=== PATIENT | female | born 1955 | race Caucasian/White ===

== ENCOUNTER 2017-09-18 16:49 | Inpatient (IN) | payer MEDICARE, MEDICAID ==
--- NOTE | 2017-09-18 17:42 | ED Physician Chart ---
ED Chief Complaint/HPI - Patient Information Date Seen:: 09/18/17 Time Seen:: 17:40 Chief Complaint:: Weakness History of Present Illness:: onset x one day of weakness, dizziness and left knee pain; no report of LOC, trauma, H/As, neck pain, C/P, SOB, Abd. Pain, A/N/V/D/C, fever, chills, or urinary s/s; Historian:: Patient, EMS Review:: Nurse's Note Reviewed, Old Chart Reviewed, EMS run form Reviewed ED Review of Systems - Review of Systems General/Constitutional: No fever, No chills, No weight loss, No weakness, No diaphoresis, No edema, No loss of appetite Skin: No skin lesions, No rash, No bruising Head: No headache, No light-headedness Eyes: No loss of vision, No pain, No diplopia ENT: No earache, No nasal drainage, No sore throat, No tinnitus Neck: No neck pain, No swelling, No thyromegaly, No stiffness, No mass noted Cardio Vascular: No chest pain, No palpitations, No PND, No orthopnea, No edema Pulmonary: No SOB, No cough, No sputum, No wheezing GI: No nausea, No vomiting, No diarrhea, No pain, No melena, No hematochezia, No constipation, No hematemesis G/U: No dysuria, No frequency, No hematuria, No nacturia [employer]: No vaginal discharge, No abnormal vaginal bleed, No contraction Musculoskeletal: Bone or joint pain, No back pain, Muscle pain Endocrine: No polyuria, No polydipsia Psychiatric: No prior psych history, No depression, No anxiety, No suicidal ideation, No homicidal ideation, No auditory hallucination, No visual hallucination Hematopoietic: No bruising, No lymphadenopathy Allergic/Immuno: No urticaria, No angioedema Neurological: No syncope, No focal symptoms, No weakness, No paresthesia, No headache, No seizure, No dizziness, No confusion, No vertigo ED Past Medical History - Past Medical History Obtainable: Yes Past Medical History: HTN, Dyslipidemia Family History: HTN Social History: Non Smoker, No Alcohol, No Drug Use, , Care Facility Surgical History: HIP Psychiatricy History: None Medication: Reviewed ED Physical Exam - Physical Examination General/Constitutional: Awake, Well-developed, well-nourished, Alert, No distress, GCS 15, Non-toxic appearing, Ambulatory Head: Atraumatic Eyes: Lids, conjuctiva normal, PERRL, EOMI Skin: Nl inspection, No rash, No skin lesions, No ecchymosis, Well hydrated, No lymphadenopathy ENMT: External ears, nose nl, TM canals nl, Nasal exam nl, Lips, teeth, gums nl , Oropharynx nl, Tonsils nl Neck: Nontender, Full ROM w/o pain, No JVD, No nuchal rigidity, No bruit, No mass, No stridor Respiratory: Nl effort/Exclusion, Clear to Auscultation, No Wheeze/Rhonchi/Rales Cardio Vascular: RRR, No murmur, gallop, rubs, NL S1 S2, Carotid/Femoral/Distal pulses equal bilaterally GI: No tenderness/rebounding/guarding, No organomegaly, No hernia, Normal BS's, Nondistended, No mass/bruits, No McBurney tenderness, Rectum exam nl : No CVA tenderness Extremities: No tenderness or effusion, Full ROM, normal strength in all extremities, No edema, Normal digits & nails Neuro/Psych: Alert/oriented, DTR's symmetric, Normal sensory exam, Normal motor strength, Judgement/insight normal, Mood normal, Normal gait, No focal deficits Misc: Normal back, No paraspinal tenderness ED Labs/Radiology/EKG Results - Lab Results Comments:: Na+: 116; + Anemia - Radiology Results Comments:: NAD - EKG Interpretations EKG Time:: 17:36 Rate & Rhythm: 75; NSR Comments:: non-specific st-t changes ED Septic Shock - . Is Septic Shock (SBP<90, OR Lactate>4 mmol\L) present?: No ED Reassessment (Disposition) - Reassessment Reassessment Condition:: Improved - Diagnosis Diagnosis:: Hyponatremia; Anemia; Weakness - Aftercare/Follow up Instructions Aftercare/Follow-Up Instructions:: Counseled pt regarding lab results/diagnosis & need follow up, Counseled pt & family regarding lab results/diagnosis & need follow up - Patient Disposition Discharge/Transfer:: Acute Care w/in this hosp Accepting Physician:: Dr. Miller Time Called:: 1814 Time Responded:: 18:15 Admitted to:: Telemetry Spoke to:: Dr. Miller Admitting Medical Physician:: Dr. Miller Condition at Disposition:: Stable, Improved
[2017-09-18 18:22] LABS: % BASOPHILS 0.9 % (0.0-2.0); % EOSINOPHILS 3.7 % (0.0-5.0); % LYMPHOCYTES 15.8 % (20.0-50.0); % NEUTROPHILS 72.6 % (40.0-80.0); BASOPHILE ABSOLUTE 0.1 Th/cumm (0-0.2); EOSINOPHILE ABSOLUTE 0.3 Th/cmm (0.1-0.4); HEMATOCRIT 35.9 % (41.0-60); HEMOGLOBIN 11.9 gm/dL (12-16); LYMPHOCYTE ABSOLUTE 1.5 Th/cmm (1.5-3.0); MEAN CELL VOLUME 88.3 fl (81-100); MEAN CORPUSCULAR HEMOGLOBIN 29.3 pg (27.0-31.0); MEAN CORPUSCULAR HGB CONC 33.2 pg (28.0-36.0); MEAN PLATELET VOLUME 7.1 fl; MONOCYTE ABSOLUTE 0.7 Th/cmm (0.3-1.0); NEUTROPHILE ABSOLUTE 6.8 Th/cmm (1.8-8.0); PLATELET COUNT 374 Th/cmm (150-400); RED BLOOD COUNT 4.06 Mil/cmm (3.80-5.10); RED CELL DISTRIBUTION WIDTH 13.3 % (11.5-20.0); WHITE BLOOD COUNT 9.4 Th/cmm (4.8-10.8)
[2017-09-18 18:35] LABS: INR 1.01 (0.5-1.4); PROTHROMBIN TIME (TEST) 10.5 SECONDS (9.5-11.5)
[2017-09-18 18:41] LABS: ALBUMIN 3.8 gm/dL (3.7-5.3); ANION GAP 13.7 (7.0-16.0); BILIRUBIN,TOTAL 0.4 mg/dL (0.3-1.0); CALCIUM SERUM 9.4 mg/dL (8.6-10.3); CARBON DIOXIDE 17.4 mEq/L (21.0-31.0); CREATININE - SERUM 1.5 mg/dL (0.6-1.2); GFR AFRICAN-AMERICAN 45.4 ml/min (>90); GFR NON AFRICAN-AMERICAN 37.5 ml/min; POTASSIUM SERUM 4.1 mEq/L (3.5-5.1); TOTAL PROTEIN,SERUM 7.7 gm/dL (6.0-8.3)
[2017-09-18] MEDS ORDERED: Sodium Chloride 0.9% 1,000 ML IV ONE (19:10)
[2017-09-18 19:30] LABS: AMYLASE SERUM 60 U/L (29-103); LIPASE 50 U/L (11-82)
[2017-09-18] MEDS ORDERED: Morphine Sulfate 2 mg/mL 1mL Syr IVP PRN (22:13)
[2017-09-18 22:24] VITALS: BP 159/90
[2017-09-18] MEDS: cefTRIAXone 1 GM in Sodium Chloride 0.9% 50 ML IV SCH (23:42)
[2017-09-19] MEDS ORDERED: D5-0.45NS 1,000 ML IV SCH
[2017-09-19] MEDS ORDERED: NAPROXEN SODIUM 220 MG PO SCH (05:00)
[2017-09-19 06:49] LABS: % BASOPHILS 1.1 % (0.0-2.0); % EOSINOPHILS 5.7 % (0.0-5.0); % LYMPHOCYTES 16.5 % (20.0-50.0); % MONOCYTES 8.4 % (2.0-10.0); % NEUTROPHILS 68.3 % (40.0-80.0); BASOPHILE ABSOLUTE 0.1 Th/cumm (0-0.2); EOSINOPHILE ABSOLUTE 0.5 Th/cmm (0.1-0.4); HEMATOCRIT 33.7 % (41.0-60); HEMOGLOBIN 11.4 gm/dL (12-16); LYMPHOCYTE ABSOLUTE 1.4 Th/cmm (1.5-3.0); MEAN CORPUSCULAR HGB CONC 33.8 pg (28.0-36.0); MEAN PLATELET VOLUME 7.4 fl; MONOCYTE ABSOLUTE 0.7 Th/cmm (0.3-1.0); NEUTROPHILE ABSOLUTE 5.6 Th/cmm (1.8-8.0); PLATELET COUNT 384 Th/cmm (150-400); RED BLOOD COUNT 3.79 Mil/cmm (3.80-5.10); RED CELL DISTRIBUTION WIDTH 13.2 % (11.5-20.0); WHITE BLOOD COUNT 8.3 Th/cmm (4.8-10.8)
[2017-09-19 06:51] LABS: INR 0.97 (0.5-1.4); PROTHROMBIN TIME (TEST) 10.1 SECONDS (9.5-11.5)
[2017-09-19 07:01] LABS: ANION GAP 10.8 (7.0-16.0); CALCIUM SERUM 9.1 mg/dL (8.6-10.3); CREATININE - SERUM 1.6 mg/dL (0.6-1.2); GFR AFRICAN-AMERICAN 42.1 ml/min (>90); GFR NON AFRICAN-AMERICAN 34.8 ml/min; POTASSIUM SERUM 3.8 mEq/L (3.5-5.1)
[2017-09-19] MEDS: Sodium Chloride 0.9% 1,000 ML IV SCH ×2 (07:34→21:20)
--- NOTE | 2017-09-19 09:49 | Diagnostic Imaging Report ---
Exam: Left knee joint. HISTORY: Pain. Findings: Multiple views of left knee joint reviewed. The study demonstrates displaced oblique overriding fracture of distal left femur. There is evidence for abnormal appearance texture of distal left femur suggestive of a pathological fracture, neoplastic component cannot be excluded Extensive degenerative osteopenia and osteoporosis noted. The joint spaces narrowed. Flattening of the tibial plateau appreciated. The visualized patella is intact. IMPRESSION: Most likely pathological fracture of the left distal femur. Degenerative osteoarthritis and osteoporosis changes of the left knee joint.
--- NOTE | 2017-09-19 09:51 | Diagnostic Imaging Report ---
Exam: Left hip joint. HISTORY: Pain. Findings: Portable examination of the left hip joint at 1926 hours reviewed. The study she is comminuted displaced fracture of the proximal shaft of the left femur extending into the intertrochanteric area with avulsion of lesser trochanter. This might represent an pathological fracture activity is unknown. The head of left femur is well within the acetabular fossa. The visualized the left hemipelvis is intact. Diffuse vascular calcifications are noted. IMPRESSION: Comminuted displaced fracture of the left femoral neck extending of the proximal left femur avulsion of the greater trochanter. This represent subacute or chronic trauma. Neoplastic component cannot be excluded.
--- NOTE | 2017-09-19 09:52 | Diagnostic Imaging Report ---
Exam: Pelvis. HISTORY: Pain. Findings: Portable examination of the pelvis at 1921 hours reviewed. The study demonstrates comminuted displaced fracture of the left femoral neck extending approximately left femur with avulsion of the greater trochanter. This might represent a pathological fracture, acuity is unknown. The visualized pelvis and right hip joints are intact. IMPRESSION Question of a subacute pathological fracture of the left upper proximal femur. Clinical correlation is recommended.
--- NOTE | 2017-09-19 09:57 | Diagnostic Imaging Report ---
Portable chest x-ray Time: 1811 History: Pain Allowing for portable technique the heart size is normal. No focal pulmonary parenchymal processes. No hilar or mediastinal abnormalities. Impression: No acute abnormalities.
[2017-09-19 15:27] LABS: URINE MICROSCOPIC INDICATED? YES; URINE SOURCE FOLEY PORT
[2017-09-19 15:28] LABS: URINE BILIRUBIN NEGATIVE (NEGATIVE); URINE BLOOD SMALL (NEGATIVE); URINE GLUCOSE (UA) NEGATIVE (NEGATIVE); URINE KETONE NEGATIVE (NEGATIVE); URINE LEUKOCYTE ESTERASE LARGE (NEGATIVE); URINE NITRATE NEGATIVE (NEGATIVE); URINE PH 6.5 (4.6 - 8.0); URINE PROTEIN 30 mg/dL (NEGATIVE); URINE UROBILINOGEN 0.2 E.U./dL (0.2 - 1.0)
[2017-09-19 15:32] LABS: URINE CLARITY CLOUDY (CLEAR); URINE COLOR STRAW
[2017-09-19 15:48] LABS: URINE BACTERIA FEW /hpf (NONE SEEN); URINE EPITHELIAL CELLS FEW /lpf (FEW); URINE WBC 25-50 /hpf (0-5)
--- NOTE | 2017-09-19 16:54 | History & Physical ---
ADMIT DATE: 09/19/2017 HISTORY OF PRESENT ILLNESS: This is a 61-year-old female who was admitted through the Emergency Room from home due to episode of weakness for one day, complaints of left knee pain and dizziness, but denies any episodes of falling or any loss of consciousness. REVIEW OF SYSTEMS: GENERAL: This is a 61-year-old female that appears as stated. Denies fever. Denies chills. HEAD: Denies headache. Positive dizziness. EYES: Denies eye pain. Denies blurring of vision. NECK: Denies neck pain. Denies nuchal rigidity. CHEST: Denies chest pain. Denies palpitation. PULMONARY: Denies coughing. Denies shortness of breath. GASTROINTESTINAL: Denies abdominal pain. Denies diarrhea, denies constipation. MUSCULOSKELETAL: Positive left knee pain. Denies muscle pain. SOCIAL HISTORY: The patient lives in her friend's home prior to hospitalization. PAST SURGICAL HISTORY: Unremarkable. FAMILY HISTORY: Unremarkable. PAST MEDICAL HISTORY: Osteoarthritis. PHYSICAL EXAMINATION: VITAL SIGNS: Temperature 97.7, heart rate 71, blood pressure 158/77, respiration of 18, 100% on room air. HEENT: Head is atraumatic, normocephalic. Eyes: Bilateral conjunctivae are clear. Bilateral pupils are equally round and reactive. NECK: Supple. No JVD. CARDIOVASCULAR: S1 and S2, without murmur. PULMONARY: Clear to auscultation. GASTROINTESTINAL: Soft and nontender without guarding. Positive bowel sounds. MUSCULOSKELETAL: No clubbing. No cyanosis noted. Limited range of motion on left leg. DIAGNOSTIC IMAGING: Pelvic x-ray revealed subacute pathological fracture of left proximal femur. ASSESSMENT: 1. Weakness. 2. Anemia. 3. Femoral fracture. 4. Osteoarthritis. 5. Obesity. PLAN: We will admit the patient to Telemetry Unit. We will consult with the orthopedic doctor. I am also going to do medication reconciliation accordingly and provide pain medication as needed. Treatment plans were discussed with the patient's nurse. Treatment plans were discussed with Dr. Miller. JOB# [id number]
[2017-09-19] MEDS: Morphine Sulfate 2 mg/mL 1mL Syr IVP PRN (21:15)
[2017-09-20] MEDS: cefTRIAXone 1 GM in Sodium Chloride 0.9% 50 ML IV SCH ×2 (00:37→23:21)
[2017-09-20 07:56] LABS: ANION GAP 11.2 (7.0-16.0); CALCIUM SERUM 8.9 mg/dL (8.6-10.3); CREATININE - SERUM 1.6 mg/dL (0.6-1.2); GFR AFRICAN-AMERICAN 42.1 ml/min (>90); GFR NON AFRICAN-AMERICAN 34.8 ml/min; POTASSIUM SERUM 4.2 mEq/L (3.5-5.1)
[2017-09-20] MEDS: Sodium Chloride 0.9% 1,000 ML IV SCH ×2 (10:48→23:26)
--- NOTE | 2017-09-20 11:16 | General Progress Note ---
Subjective - Review of Systems Events since last encounter: patient c/o knee pain c/o dizziness c/o weakness denies cp Objective - Results Result Diagrams: 09/19/17 05:55 09/20/17 07:00 Recent Labs: Laboratory Last Values WBC 8.3 Th/cmm (4.8-10.8) 09/19/17 05:55 RBC 3.79 Mil/cmm (3.80-5.10) L 09/19/17 05:55 Hgb 11.4 gm/dL (12-16) L 09/19/17 05:55 Hct 33.7 % (41.0-60) L 09/19/17 05:55 MCV 89.0 fl (81-100) 09/19/17 05:55 MCH 30.0 pg (27.0-31.0) 09/19/17 05:55 MCHC Differential 33.8 pg (28.0-36.0) 09/19/17 05:55 RDW 13.2 % (11.5-20.0) 09/19/17 05:55 Plt Count 384 Th/cmm (150-400) 09/19/17 05:55 MPV 7.4 fl 09/19/17 05:55 Neutrophils % 68.3 % (40.0-80.0) 09/19/17 05:55 Lymphocytes % 16.5 % (20.0-50.0) L 09/19/17 05:55 Monocytes % 8.4 % (2.0-10.0) 09/19/17 05:55 Eosinophils % 5.7 % (0.0-5.0) H 09/19/17 05:55 Basophils % 1.1 % (0.0-2.0) 09/19/17 05:55 PT 10.1 SECONDS (9.5-11.5) 09/19/17 05:55 INR 0.97 (0.5-1.4) 09/19/17 05:55 PTT (Actin FS) 28.1 SECONDS (26.0-38.0) 09/19/17 05:55 Sodium 123 mEq/L (136-145) L 09/20/17 07:00 Potassium 4.2 mEq/L (3.5-5.1) 09/20/17 07:00 Chloride 97 mEq/L (98-107) L 09/20/17 07:00 Carbon Dioxide 19.0 mEq/L (21.0-31.0) L 09/20/17 07:00 Anion Gap 11.2 (7.0-16.0) 09/20/17 07:00 BUN 27 mg/dL (7-25) H 09/20/17 07:00 Creatinine 1.6 mg/dL (0.6-1.2) H 09/20/17 07:00 Est GFR ( Amer) 42.1 ml/min (>90) 09/20/17 07:00 Est GFR (Non-Af Amer) 34.8 ml/min 09/20/17 07:00 BUN/Creatinine Ratio 16.9 09/20/17 07:00 Glucose 93 mg/dL (70-105) 09/20/17 07:00 Whole Bld Lactic Acid 0.72 mmol/L (0.60-1.99) 09/18/17 18:05 Calcium 8.9 mg/dL (8.6-10.3) 09/20/17 07:00 Total Bilirubin 0.4 mg/dL (0.3-1.0) 09/18/17 18:05 AST 13 U/L (13-39) 09/18/17 18:05 ALT 7 U/L (7-52) 09/18/17 18:05 Alkaline Phosphatase 106 U/L (34-104) H 09/18/17 18:05 Creatine Kinase 55 U/L (30-223) 09/18/17 18:05 Troponin I < 0.01 ng/mL (0.01-0.05) L 09/18/17 18:05 Total Protein 7.7 gm/dL (6.0-8.3) 09/18/17 18:05 Albumin 3.8 gm/dL (3.7-5.3) 09/18/17 18:05 Globulin 3.9 gm/dL 09/18/17 18:05 Albumin/Globulin Ratio 1.0 (1.0-1.8) 09/18/17 18:05 Amylase 60 U/L (29-103) 09/18/17 18:05 Lipase 50 U/L (11-82) 09/18/17 18:05 Urine Source [place] 09/19/17 15:12 Urine Color STRAW 09/19/17 15:12 Urine Clarity CLOUDY (CLEAR) H 09/19/17 15:12 Urine pH 6.5 (4.6 - 8.0) 09/19/17 15:12 Ur Specific Ages [place] <= 1.005 (1.005-1.030) 09/19/17 15:12 Urine Protein 30 mg/dL (NEGATIVE) H 09/19/17 15:12 Urine Glucose (UA) NEGATIVE mg/dL (NEGATIVE) 09/19/17 15:12 Urine Ketones NEGATIVE mg/dL (NEGATIVE) 09/19/17 15:12 Urine Blood SMALL (NEGATIVE) H 09/19/17 15:12 Urine Nitrate NEGATIVE (NEGATIVE) 09/19/17 15:12 Urine Bilirubin NEGATIVE (NEGATIVE) 09/19/17 15:12 Urine Urobilinogen 0.2 E.U./dL (0.2 - 1.0) 09/19/17 15:12 Ur Leukocyte Esterase LARGE (NEGATIVE) H 09/19/17 15:12 Urine RBC 2-5 /hpf (0-5) 09/19/17 15:12 Urine WBC 25-50 /hpf (0-5) H 09/19/17 15:12 Ur Epithelial Cells FEW /lpf (FEW) 09/19/17 15:12 Urine Bacteria FEW /hpf (NONE SEEN) 09/19/17 15:12 - Physical Exam Vitals and I&O: Vital Signs Temp 96.8 F 09/20/17 07:41 Pulse 66 09/20/17 07:41 Resp 18 09/20/17 07:41 BP 161/92 09/20/17 07:41 Pulse Ox 100 09/20/17 07:41 Intake & Output 09/19/17 09/20/17 09/20/17 18:59 06:59 18:59 Intake Total 1000 1150 1050 Output Total 1500 1750 Balance -500 -600 1050 Weight (lbs) 84.822 kg 85.275 kg Intake: Intake, IV Amount 1000 1050 Sodium Chloride 0.9% 1, 1000 1000 000 ml @ 75 mls/hr IV . [id number] [facility] Rx#:[id number] cefTRIAXone 1 gm In 50 Sodium Chloride 0.9% 50 ml @ 100 mls/hr IV Q24HR@ 0000 [facility] Rx#:[id number] Oral 1000 150 Output: Urine 1500 1750 Other: # Bowel Movements 1 1 Stool Characteristics Soft Soft Brown Brown Weight Source Bedscale Bedscale Active Medications: Current Medications Ciprofloxacin (Cipro) 500 mg PO BID [facility] Stop: 11/18/17 08:59 Last Admin: 09/20/17 08:17 Dose: 500 mg Ceftriaxone Sodium 1 gm/ (Sodium Chloride) 50 mls @ 100 mls/hr IV Q24HR@0000 [facility] Stop: 11/18/17 00:00 Last Infusion: 09/20/17 07:30 Dose: Infused Sodium Chloride (Nacl 0.9%) 1,000 mls @ 75 mls/hr IV .[id number] [facility] Stop: 11/18/17 07:14 Last Admin: 09/20/17 10:48 Dose: 75 mls/hr Morphine Sulfate (Morphine) 1 mg IVP Q3H PRN PRN Reason: MODERATE PAIN Stop: 11/17/17 22:10 Last Admin: 09/19/17 21:15 Dose: 1 mg Morphine Sulfate (Morphine) 2 mg IVP Q3H PRN PRN Reason: Severe Pain Stop: 11/17/17 22:12 Naproxen (Naprosyn) 250 mg PO TID [facility] Stop: 11/19/17 08:59 Last Admin: 09/20/17 09:22 Dose: 250 mg Ondansetron HCl (Zofran) 4 mg IV Q4H PRN PRN Reason: Nausea / Vomiting Stop: 11/17/17 22:14 General: No acute distress HEENT: Atraumatic Neck: Supple, no Thyromegaly Cardiovascular: Regular rate, Normal S1, Normal S2 Abdomen: Bowel sounds Assessment/Plan - Problem List Patient Problems: All Active Problems Anemia (Acute) D64.9 Femoral fracture (Acute) S72.90XA Obesity (Acute) E66.9 Osteoarthritis (Acute) M19.90 Weakness (Acute) - Plan Plan: as per order sheet
[2017-09-20] MEDS: Morphine Sulfate 2 mg/mL 1mL Syr IVP PRN (23:49)
[2017-09-21] MEDS: Morphine Sulfate 2 mg/mL 1mL Syr IVP PRN ×2 (11:14→21:56)
[2017-09-21] MEDS: Meropenem 500 MG in Sodium Chloride 0.9% 100 ML IV SCH ×2 (12:52→22:00)
[2017-09-21] MEDS: Sodium Chloride 0.9% 1,000 ML IV SCH (14:31)
--- NOTE | 2017-09-21 16:18 | General Progress Note ---
Subjective - Review of Systems Events since last encounter: patient with knee pain c/o generalized weakness Objective - Results Result Diagrams: 09/19/17 05:55 09/20/17 07:00 Recent Labs: Laboratory Last Values WBC 8.3 Th/cmm (4.8-10.8) 09/19/17 05:55 RBC 3.79 Mil/cmm (3.80-5.10) L 09/19/17 05:55 Hgb 11.4 gm/dL (12-16) L 09/19/17 05:55 Hct 33.7 % (41.0-60) L 09/19/17 05:55 MCV 89.0 fl (81-100) 09/19/17 05:55 MCH 30.0 pg (27.0-31.0) 09/19/17 05:55 MCHC Differential 33.8 pg (28.0-36.0) 09/19/17 05:55 RDW 13.2 % (11.5-20.0) 09/19/17 05:55 Plt Count 384 Th/cmm (150-400) 09/19/17 05:55 MPV 7.4 fl 09/19/17 05:55 Neutrophils % 68.3 % (40.0-80.0) 09/19/17 05:55 Lymphocytes % 16.5 % (20.0-50.0) L 09/19/17 05:55 Monocytes % 8.4 % (2.0-10.0) 09/19/17 05:55 Eosinophils % 5.7 % (0.0-5.0) H 09/19/17 05:55 Basophils % 1.1 % (0.0-2.0) 09/19/17 05:55 PT 10.1 SECONDS (9.5-11.5) 09/19/17 05:55 INR 0.97 (0.5-1.4) 09/19/17 05:55 PTT (Actin FS) 28.1 SECONDS (26.0-38.0) 09/19/17 05:55 Sodium 123 mEq/L (136-145) L 09/20/17 07:00 Potassium 4.2 mEq/L (3.5-5.1) 09/20/17 07:00 Chloride 97 mEq/L (98-107) L 09/20/17 07:00 Carbon Dioxide 19.0 mEq/L (21.0-31.0) L 09/20/17 07:00 Anion Gap 11.2 (7.0-16.0) 09/20/17 07:00 BUN 27 mg/dL (7-25) H 09/20/17 07:00 Creatinine 1.6 mg/dL (0.6-1.2) H 09/20/17 07:00 Est GFR ( Amer) 42.1 ml/min (>90) 09/20/17 07:00 Est GFR (Non-Af Amer) 34.8 ml/min 09/20/17 07:00 BUN/Creatinine Ratio 16.9 09/20/17 07:00 Glucose 93 mg/dL (70-105) 09/20/17 07:00 Whole Bld Lactic Acid 0.72 mmol/L (0.60-1.99) 09/18/17 18:05 Calcium 8.9 mg/dL (8.6-10.3) 09/20/17 07:00 Total Bilirubin 0.4 mg/dL (0.3-1.0) 09/18/17 18:05 AST 13 U/L (13-39) 09/18/17 18:05 ALT 7 U/L (7-52) 09/18/17 18:05 Alkaline Phosphatase 106 U/L (34-104) H 09/18/17 18:05 Creatine Kinase 55 U/L (30-223) 09/18/17 18:05 Troponin I < 0.01 ng/mL (0.01-0.05) L 09/18/17 18:05 Total Protein 7.7 gm/dL (6.0-8.3) 09/18/17 18:05 Albumin 3.8 gm/dL (3.7-5.3) 09/18/17 18:05 Globulin 3.9 gm/dL 09/18/17 18:05 Albumin/Globulin Ratio 1.0 (1.0-1.8) 09/18/17 18:05 Amylase 60 U/L (29-103) 09/18/17 18:05 Lipase 50 U/L (11-82) 09/18/17 18:05 Urine Source [place] 09/19/17 15:12 Urine Color STRAW 09/19/17 15:12 Urine Clarity CLOUDY (CLEAR) H 09/19/17 15:12 Urine pH 6.5 (4.6 - 8.0) 09/19/17 15:12 Ur Specific [place] <= 1.005 (1.005-1.030) 09/19/17 15:12 Urine Protein 30 mg/dL (NEGATIVE) H 09/19/17 15:12 Urine Glucose (UA) NEGATIVE mg/dL (NEGATIVE) 09/19/17 15:12 Urine Ketones NEGATIVE mg/dL (NEGATIVE) 09/19/17 15:12 Urine Blood SMALL (NEGATIVE) H 09/19/17 15:12 Urine Nitrate NEGATIVE (NEGATIVE) 09/19/17 15:12 Urine Bilirubin NEGATIVE (NEGATIVE) 09/19/17 15:12 Urine Urobilinogen 0.2 E.U./dL (0.2 - 1.0) 09/19/17 15:12 Ur Leukocyte Esterase LARGE (NEGATIVE) H 09/19/17 15:12 Urine RBC 2-5 /hpf (0-5) 09/19/17 15:12 Urine WBC 25-50 /hpf (0-5) H 09/19/17 15:12 Ur Epithelial Cells FEW /lpf (FEW) 09/19/17 15:12 Urine Bacteria FEW /hpf (NONE SEEN) 09/19/17 15:12 - Physical Exam Vitals and I&O: Vital Signs Temp 97.7 F 09/21/17 15:24 Pulse 70 09/21/17 15:24 Resp 18 09/21/17 15:24 BP 170/87 09/21/17 15:24 Pulse Ox 98 09/21/17 15:24 Intake & Output 09/20/17 09/21/17 09/21/17 18:59 06:59 18:59 Intake Total 2050 1047.5 1100 Output Total 1700 1700 Balance 350 -652.5 1100 Weight (lbs) 85.275 kg 85.275 kg Intake: Intake, IV Amount 1050 947.5 1100 Meropenem 500 mg In 100 Sodium Chloride 0.9% 100 ml @ 100 mls/hr IV Q8HR [facility] Rx#:[id number] Sodium Chloride 0.9% 1, 1000 947.5 1000 000 ml @ 75 mls/hr IV . [id number] [facility] Rx#:[id number] cefTRIAXone 1 gm In 50 Sodium Chloride 0.9% 50 ml @ 100 mls/hr IV Q24HR@ 0000 [facility] Rx#:[id number] Oral 1000 100 Output: Urine 1700 1700 Stool 0 Other: Stool Characteristics Soft Brown Weight Source Bedscale Bedscale Active Medications: Current Medications Docusate Sodium (Colace) 200 mg PO BID [facility] Stop: 11/19/17 17:59 Last Admin: 09/21/17 08:18 Dose: 200 mg Sodium Chloride (Nacl 0.9%) 1,000 mls @ 75 mls/hr IV .[id number] [facility] Stop: 11/18/17 07:14 Last Admin: 09/21/17 14:31 Dose: 75 mls/hr Meropenem 500 mg/ Sodium (Chloride) 100 mls @ 100 mls/hr IV Q8HR [facility] Stop: 11/20/17 12:59 Last Infusion: 09/21/17 14:39 Dose: Infused Morphine Sulfate (Morphine) 1 mg IVP Q3H PRN PRN Reason: MODERATE PAIN Stop: 11/17/17 22:10 Last Admin: 09/21/17 11:14 Dose: 1 mg Morphine Sulfate (Morphine) 2 mg IVP Q3H PRN PRN Reason: Severe Pain Stop: 11/17/17 22:12 Mupirocin (Bactroban Oint) 1 appl NS BID [facility] Stop: 09/25/17 17:01 Last Admin: 09/21/17 11:14 Dose: 1 appl Naproxen (Naprosyn) 250 mg PO TID [facility] Stop: 11/19/17 08:59 Last Admin: 09/21/17 14:30 Dose: 250 mg Ondansetron HCl (Zofran) 4 mg IV Q4H PRN PRN Reason: Nausea / Vomiting Stop: 11/17/17 22:14 General: No acute distress HEENT: Atraumatic Neck: Supple, no Thyromegaly Cardiovascular: Regular rate, Normal S1, Normal S2 Abdomen: Bowel sounds Assessment/Plan - Problem List Patient Problems: All Active Problems Anemia (Acute) D64.9 Femoral fracture (Acute) S72.90XA Obesity (Acute) E66.9 Osteoarthritis (Acute) M19.90 Weakness (Acute) - Plan Plan: as per order sheet
--- NOTE | 2017-09-21 23:36 | Consultation ---
DATE OF CONSULTATION: 09/21/2017 INFECTIOUS DISEASE CONSULTATION REFERRING PHYSICIAN: Joby Miller MD REASON FOR CONSULTATION: UTI. HISTORY OF PRESENT ILLNESS: The patient is a 61-year-old female with a past medical history of osteoarthritis, infection of the left hip after surgery for her fracture of left hip 3 years ago. 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 Now she felt dizzy and weak[place] and developed pain in the left knee. X-ray of the left knee and hip revealed pathological fracture of the left distal femur and the subacute pathological fracture of the left upper lobe proximal femur. Urinalysis showed a UTI and urine culture grew ESBL E coli. ID consult was called for further antibiotic management. Meanwhile, the patient was already started on Rocephin. On initial evaluation, she was afebrile and her WBC count was 9400. PAST MEDICAL HISTORY: Include osteoarthritis, left hip fracture, left hip prosthetic wound infection, treated 3 years ago. MEDICATIONS: As per medication reconciliation sheet. ALLERGIES: NKDA. SOCIAL HISTORY: Lives in her friend's home. No smoking, no alcohol, no drugs. FAMILY HISTORY: Unremarkable. REVIEW OF SYSTEMS: GENERAL: The patient denies any fever or chills. HEENT: No diplopia, no photophobia, no sore throat. RESPIRATORY: No cough, no shortness of breath. CARDIOVASCULAR: No chest pain or palpitation. GASTROINTESTINAL: No nausea, no vomiting, no diarrhea. GENITOURINARY: No dysuria. MUSCULOSKELETAL: The patient has inverted left hip and pain in the left knee, status post fall. CENTRAL NERVOUS SYSTEM: No headache, no dizziness, no focal weakness. PHYSICAL EXAMINATION: VITAL SIGNS: Shows temperature is 96.8, pulse 63, respirations 18, blood pressure 161/62. GENERAL: The patient is comfortable lying in the bed, not in acute distress. HEENT: Head is normocephalic, atraumatic. Oral cavity moist, pink tongue. Eyes: No pallor, no icterus. PERRLA, EOMI. NECK: Supple, no JVD, no carotid bruit. Trachea midline. CHEST: Bilateral breath sounds. No crackles or wheezing. HEART: S1, S2 within normal limits. Regular rhythm. No murmur, no gallop. ABDOMEN: Soft, nontender, nondistended. Bowel sounds present. EXTREMITIES: The patient's left hip is inverted. There is no swelling of the left knee and proximal area, left knee and distal femur. NEUROLOGIC: Alert, awake, oriented x 3. No focal deficit. LABORATORY DATA: Current lab shows WBC count is 8300, hemoglobin 11.4, hematocrit 33.7, platelets are 384,000, neutrophil 69%. Sodium 123, potassium 4.2, chloride 97, bicarbonate is 19, BUN is 27, creatinine 1.6, glucose is 93. Urinalysis showed large leukoesterase, WBC 25-50 and few bacteria. Urine culture grew ESBL Escherichia coli and blood culture, no growth. Nares positive for MRSA. IMPRESSION: 1. Urinary tract infection. 2. Distal femoral fracture. 3. Subacute fracture of left hip, likely chronic as per the history. 4. Hypertension. 5. Extended-spectrum beta-lactamase Escherichia coli infection. 6. Methicillin-resistant Staphylococcus aureus colonization. RECOMMENDATIONS: We will change antibiotic Rocephin and ciprofloxacin to meropenem. Contact isolation. As we do not have any orthopedic services available at this time, consider transfer to higher level of care. Thank you, Dr. Miller, for involving me in taking care of this patient. JOB# [id number]
== END 2017-09-21 22:20 | disposition short-term general hospital (02) | DRG 542 ==
LOC: ER 16:49 → TELE 18:15
PROVIDERS: ADMIT Internal Medicine; ATTEND Internal Medicine
DX: M80.052A Age-related osteoporosis with current pathological fracture, left femur, initial encounter for fracture (principal); G93.41 Metabolic encephalopathy; E87.1 Hypo-osmolality and hyponatremia; N39.0 Urinary tract infection, site not specified; D64.9 Anemia, unspecified; M19.90 Unspecified osteoarthritis, unspecified site; I10 Essential (primary) hypertension; E78.5 Hyperlipidemia, unspecified; Z16.12 Extended spectrum beta lactamase (ESBL) resistance; M17.12 Unilateral primary osteoarthritis, left knee; E66.9 Obesity, unspecified; Z68.31 Body mass index [BMI] 31.0-31.9, adult
CPT/HCPCS: 36415-UA; 71045-TC; 72170-TC; 73501; 73562-TC-LT; 80048-TC; 80053-TC; 81001-TC; 82150-TC; 82550-TC; 83605; 83690-TC; 84484-TC; 85025-TC; 85610-TC; 85730-TC; 87086-90; 93005; J0696; J2185; J2270; J7030; Z7610

== ENCOUNTER 2017-10-12 15:05 | Inpatient (IN) | payer MEDICARE, MEDICAID ==
--- NOTE | 2017-10-12 15:34 | ED Physician Chart ---
ED Chief Complaint/HPI - Patient Information Date Seen:: 10/12/17 Time Seen:: 15:15 Chief Complaint:: ABNORMAL LAB TEST History of Present Illness:: THIS IS A 61 YO FEMALE SEND HERE FROM THE SENIOR LIVING FOR AN EVALUATION AND TREATMENT AN ABNORMAL LAB TEST. SHE HAS A RESOLVING LEFT LOWER EXTREMITY AND HIP INJURY. Allergies:: Allergies Allergy/AdvReac Type Severity Reaction Status Date / Time No Known Allergies Allergy Verified 09/18/17 17:55 Vitals:: Vital Signs - 8 hr 10/12/17 15:11 Temp 98.4 F HR 60 RR 18 BP 125/67 O2 Sat % 96 Historian:: Medical Records Review:: Nurse's Note Reviewed, Old Chart Reviewed, Transfer documents Reviewed ED Review of Systems - Review of Systems General/Constitutional: No fever, No chills, No weight loss, No weakness, No diaphoresis, No edema, No loss of appetite Skin: No skin lesions, No rash, No bruising Head: No headache, No light-headedness Eyes: No loss of vision, No pain, No diplopia ENT: No earache, No nasal drainage, No sore throat, No tinnitus Neck: No neck pain, No swelling, No thyromegaly, No stiffness, No mass noted Cardio Vascular: No chest pain, No palpitations, No PND, No orthopnea, No edema Pulmonary: No SOB, No cough, No sputum, No wheezing GI: No nausea, No vomiting, No diarrhea, No pain, No melena, No hematochezia, No constipation, No hematemesis G/U: No dysuria, No frequency, No hematuria Musculoskeletal: Bone or joint pain, No back pain, No muscle pain Endocrine: No polyuria, No polydipsia Psychiatric: No prior psych history, No depression, No anxiety, No suicidal ideation Hematopoietic: No bruising, No lymphadenopathy Allergic/Immuno: No urticaria, No angioedema Neurological: No syncope, No focal symptoms, No weakness, No paresthesia, No headache, No seizure, No dizziness, No confusion, No vertigo ED Past Medical History - Past Medical History Obtainable: Yes Past Medical History: HTN, PUD/GERD, Arthritis Family History: None Social History: Non Smoker, No Alcohol, No Drug Use, Care Facility Surgical History: other (HIP FRACTURE) Family Medical History - Family Member Mother History Unknown: Yes Ethnicity: ED Physical Exam - Physical Examination General/Constitutional: Awake, Well-developed, well-nourished, Alert, No distress, GCS 15, Non-toxic appearing, Ambulatory Other Gen/Cons comments:: SMELLS LIKE OLD URINE Head: Atraumatic Eyes: Lids, conjuctiva normal, PERRL, EOMI Skin: Nl inspection, No rash, No skin lesions, No ecchymosis, Well hydrated, No lymphadenopathy ENMT: External ears, nose nl, Nasal exam nl, Lips, teeth, gums nl Neck: Nontender, Full ROM w/o pain, No JVD, No nuchal rigidity, No bruit, No mass, No stridor Respiratory: Nl effort/Exclusion, Clear to Auscultation, No Wheeze/Rhonchi/Rales Cardio Vascular: RRR, No murmur, gallop, rubs, NL S1 S2 GI: No tenderness/rebounding/guarding, No organomegaly, No hernia, Normal BS's, Nondistended, No mass/bruits, No McBurney tenderness : No CVA tenderness Extremities: No tenderness or effusion, Full ROM, normal strength in all extremities, No edema, Normal digits & nails Other Extremities comments:: LEFT LOWER EXTREMITY SHORTER THAN THE RIGHT. Neuro/Psych: Alert/oriented, DTR's symmetric, Normal sensory exam, Normal motor strength, Judgement/insight normal, Mood normal, Normal gait, No focal deficits Misc: Normal back, No paraspinal tenderness ED Assessment - Assessment General Assessment: DEHYDRATION URINARY TRACT INFECTION ANEMIA SEVERE LEFT LOWER EXTREMITY PAIN ED Septic Shock - . Is Septic Shock (SBP<90, OR Lactate>4 mmol\L) present?: No - <6hrs of presentation: Vital Signs: Vital Signs - 8 hr 10/12/17 15:11 Temp 98.4 F HR 60 RR 18 BP 125/67 O2 Sat % 96 ED Reassessment (Disposition) - Reassessment Reassessment Condition:: Improved - Diagnosis Diagnosis:: DEHYDRATION ANEMIA SEVERE LEFT LOWER EXTREMITY ARROYO URINARY TRACT INFECTION - Patient Disposition Discharge/Transfer:: Acute Care w/in this hosp Admitted to:: Med/Surg Admitting Medical Physician:: Odalys Miller Condition at Disposition:: Unchanged
[2017-10-12 15:54] LABS: % BASOPHILS 1.4 % (0.0-2.0); % LYMPHOCYTES 16.3 % (20.0-50.0); % MONOCYTES 5.8 % (2.0-10.0); % NEUTROPHILS 73.5 % (40.0-80.0); BASOPHILE ABSOLUTE 0.1 Th/cumm (0-0.2); EOSINOPHILE ABSOLUTE 0.3 Th/cmm (0.1-0.4); HEMATOCRIT 27.9 % (41.0-60); HEMOGLOBIN 9.5 gm/dL (12-16); LYMPHOCYTE ABSOLUTE 1.5 Th/cmm (1.5-3.0); MEAN CELL VOLUME 87.2 fl (81-100); MEAN CORPUSCULAR HEMOGLOBIN 29.7 pg (27.0-31.0); MEAN CORPUSCULAR HGB CONC 34.1 pg (28.0-36.0); MEAN PLATELET VOLUME 7.3 fl; MONOCYTE ABSOLUTE 0.5 Th/cmm (0.3-1.0); NEUTROPHILE ABSOLUTE 6.7 Th/cmm (1.8-8.0); PLATELET COUNT 418 Th/cmm (150-400); RED CELL DISTRIBUTION WIDTH 14.1 % (11.5-20.0); WHITE BLOOD COUNT 9.1 Th/cmm (4.8-10.8)
[2017-10-12 16:10] LABS: INR 0.91 (0.5-1.4); PROTHROMBIN TIME (TEST) 9.5 SECONDS (9.5-11.5)
[2017-10-12 16:13] LABS: ALB/GLOB RATIO 1.1 (1.0-1.8); ALBUMIN 3.9 gm/dL (3.7-5.3); ANION GAP 15.2 (7.0-16.0); BILIRUBIN,TOTAL 0.3 mg/dL (0.3-1.0); CALCIUM SERUM 9.6 mg/dL (8.6-10.3); CARBON DIOXIDE 19.2 mEq/L (21.0-31.0); GFR AFRICAN-AMERICAN 32.6 ml/min (>90); GFR NON AFRICAN-AMERICAN 26.9 ml/min; POTASSIUM SERUM 5.4 mEq/L (3.5-5.1); TOTAL PROTEIN,SERUM 7.6 gm/dL (6.0-8.3)
[2017-10-12 16:58] LABS: URINE MICROSCOPIC INDICATED? YES; URINE SOURCE CLEAN C
[2017-10-12 17:02] LABS: URINE BILIRUBIN NEGATIVE (NEGATIVE); URINE BLOOD SMALL (NEGATIVE); URINE GLUCOSE (UA) NEGATIVE (NEGATIVE); URINE KETONE NEGATIVE (NEGATIVE); URINE LEUKOCYTE ESTERASE LARGE (NEGATIVE); URINE NITRATE NEGATIVE (NEGATIVE); URINE PROTEIN 100 mg/dL (NEGATIVE); URINE UROBILINOGEN 0.2 E.U./dL (0.2 - 1.0)
[2017-10-12] MEDS ORDERED: Sodium Chloride 0.9% 1,000 ML IV ONE (17:05)
[2017-10-12 17:34] LABS: URINE CLARITY HAZY (CLEAR); URINE COLOR YELLOW
[2017-10-12 17:43] LABS: URINE BACTERIA NONE SEEN /hpf (NONE SEEN); URINE EPITHELIAL CELLS FEW /lpf (FEW)
[2017-10-12] MEDS: cefTRIAXone 1 GM in Sodium Chloride 0.9% 50 ML IV SCH (20:00)
[2017-10-12] MEDS: Sodium Chloride 0.9% 1,000 ML IV SCH (21:00)
--- NOTE | 2017-10-12 21:41 | History & Physical ---
ADMIT DATE: 10/12/2017 HISTORY OF PRESENT ILLNESS: This is a 61-year-old female well known to me. The patient was here about 3 or 4 weeks ago, at that time, the patient had a history of fall and left femur fracture and the patient was evaluated and since ____ orthopedic doctor. The patient was sent to [facility] under Dr. Herman Mendoza. The patient had surgery done and the patient was sent to the assisted at [facility]. They had called me from [facility] and they have done the labs, which included sodium was low, and the patient also was complaining of a pain on movements and the patient was sent over for evaluation. The patient complained of no chest pain, no dysuria, no complaint of left leg pain, bony pain, and particularly on moving and neurologically had no syncope. The patient is known to have history of hypertension, history of arthritis, history of peptic ulcer disease and GERD. The patient is awake, alert, small statured patient. Left leg is extremely rotated and has a dressing and has a history of fracture there with repair, with possible intramedullary rods. PHYSICAL EXAMINATION: HEAD: Normal. ENT: Normal. NECK: Supple, nontender. LUNGS: Clear. CARDIOVASCULAR SYSTEM: S1, S2 heard. ABDOMEN: Soft. Bowel sounds are heard. EXTREMITIES: Left lower extremity short and externally rotated. DIAGNOSES: Urinary tract infection, rule out sepsis, dehydration, anemia, status post left femur fracture, history of hypertension, peptic ulcer disease, history of gastroesophageal reflux disease, history of arthritis, and history of depression. The patient is going to be admitted. I will go ahead and give her IV antibiotics. We will have Dr. Mendoza see the patient for either a UTI and will have the orthopedic doctor followup the patient. JOB# [id number]
[2017-10-12] MEDS: Enoxaparin 30 mg/0.3 mL 0.3mL Syr SUBQ SCH (21:43)
[2017-10-12 22:49] VITALS: BP 115/57
--- NOTE | 2017-10-12 23:46 | Consultation ---
Consult Note - Consult Note Service Date: 10/12/17 Referring Physician: Odalys Miller Consult Note: PHYSICIAN Consultation Note: Date of Admission: 10/12/17 Purpose of Consultation: Chief Complaint: Patient LINDA PFEIFFER [facility] with DEHYDRATION,ANEMIA. History of Present Illness: 6 units with a past medical history of left hip fracture followed by infection of the wound[place] She developed the left knee pain and swelling. X-ray of the left knee and femur suggested fracture of the distal femur. There was subacute fracture of the proximal femur also. Patient was transferred [facility], we are she had ORIF performed by Dr. Scooby Tello. Besides this she was diagnosed to have ESBL Escherichia coli UTI. She did well the hospital course went well. She was transferred to nursing facility for further care. She was sent to the ER for abnormal labs, Including hyponatremia. Urinalysis suggested UTI. Past Medical History: Osteoarthritis, left hip fracture, left hip ORIF wound infection 3 years ago. Recent history of distal femur in lecture of left leg, treated at [facility]. Allergies Allergy/AdvReac Type Severity Reaction Status Date / Time No Known Allergies Allergy Verified 09/18/17 17:55 Vital Signs Temp 98.0 F 10/12/17 19:53 Pulse 60 10/12/17 21:43 Resp 18 10/12/17 20:00 BP 115/57 10/12/17 22:48 Pulse Ox 98 10/12/17 19:53 Intake & Output 10/12/17 10/12/17 10/13/17 06:59 18:59 06:59 Weight (lbs) 97.522 kg 84.504 kg Other: Weight Source Estimated Bedscale Laboratory Results - last 24 hr 10/12/17 10/12/17 10/12/17 15:37 15:37 15:37 WBC 9.1 RBC 3.20 L Hgb 9.5 L Hct 27.9 L MCV 87.2 MCH 29.7 MCHC Differential 34.1 RDW 14.1 Plt Count 418 H MPV 7.3 Neutrophils % 73.5 Lymphocytes % 16.3 L Monocytes % 5.8 Eosinophils % 3.0 Basophils % 1.4 PT 9.5 INR 0.91 PTT (Actin FS) 30.5 Sodium 124 L Potassium 5.4 H Chloride 95 L Carbon Dioxide 19.2 L Anion Gap 15.2 BUN 49 H Creatinine 2.0 H Est GFR ( Amer) 32.6 Est GFR (Non-Af Amer) 26.9 BUN/Creatinine Ratio 24.5 Glucose 135 H Calcium 9.6 Total Bilirubin 0.3 AST 13 ALT 6 L Alkaline Phosphatase 96 Troponin I Total Protein 7.6 Albumin 3.9 Globulin 3.7 Albumin/Globulin Ratio 1.1 Triglycerides 101 Cholesterol 144 LDL Cholesterol Direct 90 HDL Cholesterol 39 TSH Urine Source Urine Color Urine Clarity Urine pH Ur Specific [place] Urine Protein Urine Glucose (UA) Urine Ketones Urine Blood Urine Nitrate Urine Bilirubin Urine Urobilinogen Ur Leukocyte Esterase Urine RBC Urine WBC Ur Epithelial Cells Urine Bacteria 10/12/17 10/12/17 10/12/17 15:37 15:37 16:48 WBC RBC Hgb Hct MCV MCH MCHC Differential RDW Plt Count MPV Neutrophils % Lymphocytes % Monocytes % Eosinophils % Basophils % PT INR PTT (Actin FS) Sodium Potassium Chloride Carbon Dioxide Anion Gap BUN Creatinine Est GFR ( Amer) Est GFR (Non-Af Amer) BUN/Creatinine Ratio Glucose Calcium Total Bilirubin AST ALT Alkaline Phosphatase Troponin I < 0.01 L Total Protein Albumin Globulin Albumin/Globulin Ratio Triglycerides Cholesterol LDL Cholesterol Direct HDL Cholesterol TSH 2.58 Urine Source CLEAN C Urine Color YELLOW Urine Clarity HAZY Urine pH 6.0 Ur Specific [place] 1.010 Urine Protein 100 H Urine Glucose (UA) NEGATIVE Urine Ketones NEGATIVE Urine Blood SMALL H Urine Nitrate NEGATIVE Urine Bilirubin NEGATIVE Urine Urobilinogen 0.2 Ur Leukocyte Esterase LARGE H Urine RBC 5-10 H Urine WBC 6-10 H Ur Epithelial Cells FEW Urine Bacteria NONE SEEN Home Medication Medication Instructions Recorded Type Acetaminophen [Tylenol Extra 500 mg PO Q4HR PRN 10/12/17 History Strength] Acetaminophen [Tylenol] 650 mg PO DAILY 10/12/17 History Acetaminophen [Tylenol] 650 mg PO Q4HR PRN 10/12/17 History Cranberry Fruit Extract [Cranberry] 425 mg PO BID 10/12/17 History Enoxaparin [Lovenox] 40 mg SUBQ Q24H 10/12/17 History Hydrocodone/APAP 5mg/325mg [[place] 1 tab PO Q6H PRN 10/12/17 History 5mg/325mg] Lisinopril [Prinivil] 5 mg PO BID 10/12/17 History Metoprolol Tartrate [Lopressor] 50 mg PO Q12H 10/12/17 History Pantoprazole [Protonix] 40 mg PO DAILY 10/12/17 History amLODIPine Besylate [Norvasc*] 10 mg PO DAILY 10/12/17 History cloNIDine HCl [Catapres] 0.1 mg PO Q4H PRN 10/12/17 History Current Medications Generic Name Dose Route Start Last Admin Trade Name Freq PRN Reason Stop Dose Admin Acetaminophen 650 mg 10/13/17 09:00 Tylenol PO 12/12/17 08:59 DAILY LILLIAN Acetaminophen/Hydrocodone Bitart 1 tab 10/12/17 20:20 [place] 5mg/325mg PO 12/11/17 20:19 Q6H PRN Severe Pain Amlodipine Besylate 10 mg 10/13/17 09:00 Norvasc PO 12/12/17 08:59 DAILY LILLIAN Enoxaparin Sodium 30 mg 10/12/17 22:00 10/12/17 21:43 Lovenox SUBQ 12/11/17 21:59 30 mg Q24H LILLIAN Administration Ceftriaxone Sodium 1 gm/ 50 mls @ 100 mls/hr 10/12/17 20:00 10/12/17 20:00 Sodium Chloride IV 12/11/17 19:59 Not Given Q24HR LILLIAN Sodium Chloride 1,000 mls @ 125 mls/hr 10/12/17 20:45 10/12/17 21:00 Nacl 0.9% IV 12/11/17 20:44 125 mls/hr .Q8H LILLIAN Administration Metoprolol Tartrate 50 mg 10/12/17 20:30 10/12/17 21:43 Lopressor PO 12/11/17 20:29 50 mg Q12H LILLIAN Administration Miscellaneous 425 mg 10/13/17 09:00 Cranberry Fruit Extract [Cranberry] PO 12/12/17 08:59 BID LILLIAN Pantoprazole Sodium 40 mg 10/13/17 07:30 Protonix PO 12/12/17 07:29 QDAC LILLIAN Review of Systems: A 12 point ROS was reviewed with the pertinent positive and negatives noted in the HPI. Social History Smoking Status Smoker, status unknown Family Medical History Family Medical History Start: 10/12/17 19: 53 Freq: ONCE Status: Active Protocol: Document 10/12/17 19:53 [email or web address] (Rec: 10/12/17 23:01 MCKENNA [id number]-[id number]) Family Medical History Mother History Unknown Yes Physical Exam: General: Comfortable, not in acute distress. HEENT: Head: Normocephalic, atraumatic. Oral cavity: Moist, pink tongue. Eyes : Pallor is present icterus. Neck: Supple, no JVD. No use of accessory neck muscles. Cardio: S1 and S2 within normal limits regular rhythm no murmur or gallop Respiratory: Vesicular breath sound. No crackles no wheezing. Abdominal: Soft, nontender nondistended bowel sounds present. Genital/Urinary: Deferred. Extremities: No cyanosis, no clubbing, no edema. Left thigh surgical wound, looks okay there is a stabilizer. The left leg is rotated internally Neurological: Alert, awake, oriented 3. Assessment: 1. UTI. 2. Hyponatremia. 3. Osteoarthritis. 4. Status post ORIF of left distal femur. Plan: Continue Rocephin. Follow the culture report and go from there. Thank you, Dr. Miller for involving me taking care of this patient. Arlene, Herman Mendoza M.D. [id number]
[2017-10-13] MEDS ORDERED: Morphine Sulfate 2 mg/mL 1mL Syr IVP PRN ×2 (00:33)
[2017-10-13] MEDS: Sodium Chloride 0.9% 1,000 ML IV SCH ×3 (04:56→23:02)
[2017-10-13 05:09] LABS: % BASOPHILS 1.3 % (0.0-2.0); % EOSINOPHILS 3.5 % (0.0-5.0); % LYMPHOCYTES 17.9 % (20.0-50.0); % MONOCYTES 7.7 % (2.0-10.0); % NEUTROPHILS 69.6 % (40.0-80.0); BASOPHILE ABSOLUTE 0.1 Th/cumm (0-0.2); EOSINOPHILE ABSOLUTE 0.3 Th/cmm (0.1-0.4); HEMATOCRIT 25.7 % (41.0-60); HEMOGLOBIN 8.6 gm/dL (12-16); LYMPHOCYTE ABSOLUTE 1.3 Th/cmm (1.5-3.0); MEAN CELL VOLUME 88.9 fl (81-100); MEAN CORPUSCULAR HEMOGLOBIN 29.8 pg (27.0-31.0); MEAN CORPUSCULAR HGB CONC 33.5 pg (28.0-36.0); MEAN PLATELET VOLUME 7.4 fl; MONOCYTE ABSOLUTE 0.6 Th/cmm (0.3-1.0); PLATELET COUNT 360 Th/cmm (150-400); RED BLOOD COUNT 2.89 Mil/cmm (3.80-5.10); RED CELL DISTRIBUTION WIDTH 14.1 % (11.5-20.0); WHITE BLOOD COUNT 7.3 Th/cmm (4.8-10.8)
[2017-10-13 05:24] LABS: ALBUMIN 3.3 gm/dL (3.7-5.3); ANION GAP 12.5 (7.0-16.0); BILIRUBIN,TOTAL 0.2 mg/dL (0.3-1.0); CALCIUM SERUM 9.1 mg/dL (8.6-10.3); CARBON DIOXIDE 16.6 mEq/L (21.0-31.0); CREATININE - SERUM 1.8 mg/dL (0.6-1.2); GFR AFRICAN-AMERICAN 36.8 ml/min (>90); GFR NON AFRICAN-AMERICAN 30.4 ml/min; POTASSIUM SERUM 5.1 mEq/L (3.5-5.1); TOTAL PROTEIN,SERUM 6.6 gm/dL (6.0-8.3)
[2017-10-13] MEDS: Pantoprazole 40 mg EC Tab PO SCH (06:33)
--- NOTE | 2017-10-13 08:34 | Diagnostic Imaging Report ---
CHEST X-RAY: AP view INDICATION: Congestion COMPARISON: Chest x-ray 09/18/2018 FINDINGS: Increased interstitial lung markings are noted. No focal consolidation or pleural effusions. There is mild elevation of the right hemidiaphragm. Mild cardiomegaly is noted. There may be minimal atherosclerosis aortic arch. Degenerative changes of the spine are noted. IMPRESSION: Increased interstitial lung markings which may be secondary to chronic lung changes however, a marginal degree of congestion cannot be excluded. Mild cardiomegaly.
[2017-10-13] MEDS ORDERED: Non-Formulary Item 1 EA (Cranberry Fruit Extract [Cranberry] 425 MG) PO SCH (09:00)
--- NOTE | 2017-10-13 12:06 | Diagnostic Imaging Report ---
Left femur 2 views History: Fracture Comparison: Left knee and left hip x-rays on 09/18/2017 Findings: There is a markedly displaced and nonunited fracture of the left femoral neck extending to the trochanteric region. There is abnormal increase in varus angulation in this region. There is also interval intramedullary erica and distal nail fixation of distal femoral shaft fracture with mild improvement in alignment. Overlying external material limits the examination. The fracture lines are still well visualized. Osteopenia is noted. Sclerotic density of the proximal tibia is noted possibly related to bone infarct. Postsurgical changes of the distal femur and proximal regions are noted. Marked atherosclerosis is noted. IMPRESSION: Status post intramedullary erica fixation of distal femoral shaft fracture with improvement in alignment. The fracture lines are still well visualized without significant callus formation in this region. Redemonstration of nonunited left femoral neck fracture extending to the trochanteric region with increased varus angulation. Findings probably represent a subacute or chronic fracture. Marked osteopenia. Sclerotic density of proximal tibia which may represent a bone infarct. An enchondroma is considered less likely. Please correlate with clinical history and old exams. Please refer to above report for details. Atherosclerotic vascular disease. In the setting of trauma, if clinical symptoms persist and there is continued concern for an occult fracture, follow up exams in 5-7 days is recommended.
--- NOTE | 2017-10-13 14:50 | Infectious Disease Prog Note ---
Infectious Disease Subjective - Review of Systems Service Date: 10/13/17 Subjective: There is no new change. Infectious Disease Objective - Results Result Diagrams: 10/13/17 04:50 10/13/17 04:50 Recent Labs: Laboratory Last Values WBC 7.3 Th/cmm (4.8-10.8) 10/13/17 04:50 RBC 2.89 Mil/cmm (3.80-5.10) L 10/13/17 04:50 Hgb 8.6 gm/dL (12-16) L 10/13/17 04:50 Hct 25.7 % (41.0-60) L 10/13/17 04:50 MCV 88.9 fl (81-100) 10/13/17 04:50 MCH 29.8 pg (27.0-31.0) 10/13/17 04:50 MCHC Differential 33.5 pg (28.0-36.0) 10/13/17 04:50 RDW 14.1 % (11.5-20.0) 10/13/17 04:50 Plt Count 360 Th/cmm (150-400) 10/13/17 04:50 MPV 7.4 fl 10/13/17 04:50 Neutrophils % 69.6 % (40.0-80.0) 10/13/17 04:50 Lymphocytes % 17.9 % (20.0-50.0) L 10/13/17 04:50 Monocytes % 7.7 % (2.0-10.0) 10/13/17 04:50 Eosinophils % 3.5 % (0.0-5.0) 10/13/17 04:50 Basophils % 1.3 % (0.0-2.0) 10/13/17 04:50 PT 9.5 SECONDS (9.5-11.5) 10/12/17 15:37 INR 0.91 (0.5-1.4) 10/12/17 15:37 PTT (Actin FS) 30.5 SECONDS (26.0-38.0) 10/12/17 15:37 Sodium 128 mEq/L (136-145) L 10/13/17 04:50 Potassium 5.1 mEq/L (3.5-5.1) 10/13/17 04:50 Chloride 104 mEq/L (98-107) 10/13/17 04:50 Carbon Dioxide 16.6 mEq/L (21.0-31.0) L 10/13/17 04:50 Anion Gap 12.5 (7.0-16.0) 10/13/17 04:50 BUN 41 mg/dL (7-25) H 10/13/17 04:50 Creatinine 1.8 mg/dL (0.6-1.2) H 10/13/17 04:50 Est GFR ( Amer) 36.8 ml/min (>90) 10/13/17 04:50 Est GFR (Non-Af Amer) 30.4 ml/min 10/13/17 04:50 BUN/Creatinine Ratio 22.8 10/13/17 04:50 Glucose 102 mg/dL (70-105) 10/13/17 04:50 Calcium 9.1 mg/dL (8.6-10.3) 10/13/17 04:50 Total Bilirubin 0.2 mg/dL (0.3-1.0) L 10/13/17 04:50 AST 10 U/L (13-39) L 10/13/17 04:50 ALT 7 U/L (7-52) 10/13/17 04:50 Alkaline Phosphatase 90 U/L (34-104) 10/13/17 04:50 Troponin I < 0.01 ng/mL (0.01-0.05) L 10/12/17 15:37 Total Protein 6.6 gm/dL (6.0-8.3) 10/13/17 04:50 Albumin 3.3 gm/dL (3.7-5.3) L 10/13/17 04:50 Globulin 3.3 gm/dL 10/13/17 04:50 Albumin/Globulin Ratio 1.0 (1.0-1.8) 10/13/17 04:50 Triglycerides 92 mg/dL (<150) 10/13/17 04:50 Cholesterol 127 mg/dL (<200) 10/13/17 04:50 LDL Cholesterol Direct 77 mg/dL (75-193) 10/13/17 04:50 HDL Cholesterol 34 mg/dL (23-92) 10/13/17 04:50 TSH 1.96 uIU/ml (0.34-5.60) 10/13/17 04:50 Urine Source CLEAN C 10/12/17 16:48 Urine Color YELLOW 10/12/17 16:48 Urine Clarity HAZY (CLEAR) 10/12/17 16:48 Urine pH 6.0 (4.6 - 8.0) 10/12/17 16:48 Ur Specific [place] 1.010 (1.005-1.030) 10/12/17 16:48 Urine Protein 100 mg/dL (NEGATIVE) H 10/12/17 16:48 Urine Glucose (UA) NEGATIVE mg/dL (NEGATIVE) 10/12/17 16:48 Urine Ketones NEGATIVE mg/dL (NEGATIVE) 10/12/17 16:48 Urine Blood SMALL (NEGATIVE) H 10/12/17 16:48 Urine Nitrate NEGATIVE (NEGATIVE) 10/12/17 16:48 Urine Bilirubin NEGATIVE (NEGATIVE) 10/12/17 16:48 Urine Urobilinogen 0.2 E.U./dL (0.2 - 1.0) 10/12/17 16:48 Ur Leukocyte Esterase LARGE (NEGATIVE) H 10/12/17 16:48 Urine RBC 5-10 /hpf (0-5) H 10/12/17 16:48 Urine WBC 6-10 /hpf (0-5) H 10/12/17 16:48 Ur Epithelial Cells FEW /lpf (FEW) 10/12/17 16:48 Urine Bacteria NONE SEEN /hpf (NONE SEEN) 10/12/17 16:48 - Physical Exam Vitals and I&O: Vital Signs Temp 98.2 F 10/13/17 11:50 Pulse 58 10/13/17 11:50 Resp 20 10/13/17 11:50 BP 117/61 10/13/17 11:50 Pulse Ox 98 10/13/17 11:50 Intake & Output 10/12/17 10/13/17 10/13/17 18:59 06:59 18:59 Intake Total 1146.298 9121 Balance 9043.535 4197 Weight (lbs) 97.522 kg 84.504 kg Intake: Intake, IV Amount 021.149 2403 Sodium Chloride 0.9% 1, 998.953 3235 000 ml @ 125 mls/hr IV . Q8H LILLIAN Rx#:[id number] Oral 300 Other: # Voids 2 # Bowel Movements 1 Weight Source Estimated Bedscale Active Medications: Current Medications Acetaminophen (Tylenol) 650 mg PO DAILY [facility] Stop: 12/12/17 08:59 Last Admin: 10/13/17 08:59 Dose: 650 mg Acetaminophen/Hydrocodone Bitart ([place] 5mg/325mg) 1 tab PO Q6H PRN PRN Reason: Severe Pain Stop: 12/11/17 20:19 Amlodipine Besylate (Norvasc) 10 mg PO DAILY LILLIAN Stop: 12/12/17 08:59 Last Admin: 10/13/17 08:58 Dose: 10 mg Enoxaparin Sodium (Lovenox) 30 mg SUBQ Q24H LILLIAN Stop: 12/11/17 21:59 Last Admin: 10/12/17 21:43 Dose: 30 mg Ceftriaxone Sodium 1 gm/ (Sodium Chloride) 50 mls @ 100 mls/hr IV Q24HR [facility] Stop: 12/11/17 19:59 Last Admin: 10/12/17 20:00 Dose: Not Given Sodium Chloride (Nacl 0.9%) 1,000 mls @ 125 mls/hr IV .Q8H [facility] Stop: 12/11/17 20:44 Last Admin: 10/13/17 14:14 Dose: 125 mls/hr Metoprolol Tartrate (Lopressor) 50 mg PO Q12H [facility] Stop: 12/11/17 20:29 Last Admin: 10/13/17 08:58 Dose: 50 mg Morphine Sulfate (Morphine) 1 mg IVP Q4HR PRN PRN Reason: Pain (Moderate) Stop: 12/12/17 00:32 Morphine Sulfate (Morphine) 2 mg IVP Q4HR PRN PRN Reason: Pain (Severe) Stop: 12/12/17 00:32 Last Admin: 10/13/17 05:18 Dose: 2 mg Pantoprazole Sodium (Protonix) 40 mg PO QDAC [facility] Stop: 12/12/17 07:29 Last Admin: 10/13/17 06:33 Dose: 40 mg General: no acute distress, well developed, well nourished HEENT: atraumatic, normocephalic, PERRLA Neck: supple, no thyromegaly, no lymphadenopathy Cardiovascular: S1S2, regular Lungs: clear to auscultation bilaterally, clear to percussion Abdomen: soft, no tender, no distended, no mass, no hepatomegaly Extremities: other (left hip wound, dressed. There is a stabilizer. Left lower extremity is internally rotated), no cyanosis, no clubbing, no edema Neurological: awake, alert, oriented Skin: intact Infectious Disease Assmt/Plan - Problem List Patient Problems: All Active Problems HYPONATREMIA WITH WEAKNESS AND N/V (Acute) - Assessment Assessment: 1. UTI. 2. Hyponatremia. 3. Osteoarthritis. 4. Status post ORIF of left distal femur. - Plan Plan: Continue Rocephin. All of the culture report and depending on the culture report, will define final antibiotic regimen.
[2017-10-13 15:41] LABS: URINE MICROSCOPIC INDICATED? YES; URINE SOURCE MIDSTREAM
[2017-10-13 16:04] LABS: URINE BILIRUBIN NEGATIVE (NEGATIVE); URINE BLOOD TRACE (NEGATIVE); URINE GLUCOSE (UA) NEGATIVE (NEGATIVE); URINE KETONE NEGATIVE (NEGATIVE); URINE LEUKOCYTE ESTERASE LARGE (NEGATIVE); URINE NITRATE NEGATIVE (NEGATIVE); URINE PROTEIN 30 mg/dL (NEGATIVE); URINE UROBILINOGEN 0.2 E.U./dL (0.2 - 1.0)
[2017-10-13 16:50] LABS: URINE CLARITY HAZY (CLEAR); URINE COLOR YELLOW
[2017-10-13 16:52] LABS: URINE EPITHELIAL CELLS MODERATE /lpf (FEW)
[2017-10-13 16:53] LABS: URINE BACTERIA 1+ /hpf (NONE SEEN)
[2017-10-13 17:13] LABS: EOSINOPHIL SMEAR SOURCE URINE; EOSINOPHILS SMEAR COUNT NONE SEEN (NONE SEEN)
--- NOTE | 2017-10-13 19:35 | Consultation ---
DATE OF CONSULTATION: 10/12/2017 REASON FOR CONSULTATION: Worsening kidney function, electrolyte imbalance, and fluid management. HISTORY OF PRESENT ILLNESS: This is a 61-year-old female with past medical history of chronic kidney disease, who came in because of left leg pain. Two weeks prior to admission[place] sustained a left distal femur fracture. She was admitted at [facility] where she had left intramedullary erica fixation. A few hours prior to admission, she developed progressive left leg pain. Labs drawn at [facility] revealed sodium of 124. Thus, she was brought to the Emergency Room because of her worsening left leg pain as well as hyponatremia. Her white count was 9.1. Left leg x-ray as well as left femur x-ray showed intramedullary erica fixation with redemonstration of non-united left femoral neck fracture. Her creatinine at [facility] ranged between 1.73-1.99. She was admitted now with a sodium of 124, potassium of 5.4 and a BUN/creatinine of 49/2. She had no history of nausea and vomiting as well as diarrhea. PAST MEDICAL HISTORY: 1. Chronic kidney disease. 2. Gastritis. 3. Essential hypertension. CURRENT MEDICATIONS: She is currently on acetaminophen, amlodipine, ceftriaxone, clonidine, enoxaparin, [place], morphine sulfate, Protonix. ALLERGIES: No known drug allergies. SOCIAL HISTORY: No history of alcohol or tobacco use. FAMILY HISTORY: Noncontributory to present illness. REVIEW OF SYSTEMS: GENERAL: She does have some weakness. Denied any fever or chills. Appetite had been fair. HEENT: No mention of headaches, no dizziness. CARDIORESPIRATORY: No chest pain, palpitations, diaphoresis, cough, no shortness of breath at this point. GASTROINTESTINAL: No nausea and vomiting, abdominal pain or cramping, hematemesis, melena, hematochezia, no diarrhea. ENDOCRINE: She has no history of diabetes, thyroid abnormalities, no dyslipidemia. MUSCULOSKELETAL: Multiple joint arthralgias. She did sustain a fracture of left distal femur. HEMATOLOGIC: Mild anemia. GENITOURINARY: History of chronic kidney disease. No dysuria, no hematuria. NEUROPSYCH: No syncopal episode or seizure activity. Denied any neuropathy. PHYSICAL EXAMINATION: GENERAL: The patient is alert, verbal, still complaining of left leg pain. VITAL SIGNS: Temperature 98.2 degrees, pulse 58, blood pressure 117/61. SKIN: Poor turgor, warm, no rash, no jaundice appreciated. HEENT: Head normocephalic, atraumatic. Eyes: Extraocular muscles intact. Pupils equal, round, reactive to light and accommodates. Anicteric sclerae. Pale conjunctivae. Nose: Midline nasal septum. Mouth: Dry mucosa. Poor dentition. NECK: Supple, no adenopathy, no thyromegaly, no bruits. Trachea palpated in the midline. CHEST AND CARDIOVASCULAR: S1, S2, bradycardic, but no rub, murmur or gallop appreciated. Point of maximal impulse fifth intercostal space, left midclavicular line. No abdominal or femoral bruits appreciated. LUNGS: Equal expansion. No use of accessory muscles. No supraclavicular retractions. Decreased breath sounds, but clear to auscultation without any wheeze. ABDOMEN: Mildly globular, soft. Positive for bowel sounds. No bruits either diastolic or systolic. BREASTS: Symmetrical, without any discharge. RECTAL: Lax sphincter tone. GENITOURINARY: Normal appearing female genitalia. MUSCULOSKELETAL: No effusions present in her joints. Limited range of motion of the left lower extremity, but adequate range of motion right lower extremity. NEUROLOGIC: The patient is alert and verbal. Motor is 5/5. Cranial nerves 2-12 intact. Sensory intact. LABORATORY DATA AND STUDIES: Sodium 128, potassium 5.1, chloride 104, bicarbonate 16, BUN 41, creatinine 1.8, glucose 102, albumin 3.3. TSH 1.96. White count 7.3, hemoglobin 8.6, hematocrit 35.7, platelets 360, polys 69.6%. IMPRESSION: 1. Chronic kidney disease, MDRD GFR of 30 mL per minute. The patient has a history of chronic kidney disease based on labs that were drawn 2 weeks ago at [facility]. Her chronic kidney disease may be secondary to underlying hypertension, giving rise to hypertensive nephrosclerosis. 2. Hyponatremia, etiology unknown at the present time based upon history. However, there may be an increase in sodium loss since the patient has a very good response to normal saline infusion. 3. Gastritis. 4. Hyperkalemia secondary to kidney failure. 5. Essential hypertension. 6. Anion gap metabolic acidosis. PLAN: 1. Continue with IV fluids of normal saline. 2. Urinalysis. 3. Urine spot sodium, eosinophils as well as creatinine. 4. Renal ultrasound. 5. Serum osmolality as well as uric acid. 6. Followup orthopedic consult. Thank you, Dr. Miller for this consult. I will follow the patient closely with you. [facility]# [id number]
[2017-10-13] MEDS: cefTRIAXone 1 GM in Sodium Chloride 0.9% 50 ML IV SCH (20:56)
[2017-10-13] MEDS: Enoxaparin 30 mg/0.3 mL 0.3mL Syr SUBQ SCH (23:02)
[2017-10-14 05:34] LABS: % BASOPHILS 1.1 % (0.0-2.0); % EOSINOPHILS 3.8 % (0.0-5.0); % LYMPHOCYTES 23.2 % (20.0-50.0); % MONOCYTES 11.6 % (2.0-10.0); % NEUTROPHILS 60.3 % (40.0-80.0); BASOPHILE ABSOLUTE 0.1 Th/cumm (0-0.2); EOSINOPHILE ABSOLUTE 0.3 Th/cmm (0.1-0.4); HEMATOCRIT 24.5 % (41.0-60); HEMOGLOBIN 8.4 gm/dL (12-16); LYMPHOCYTE ABSOLUTE 1.8 Th/cmm (1.5-3.0); MEAN CELL VOLUME 89.8 fl (81-100); MEAN CORPUSCULAR HEMOGLOBIN 30.7 pg (27.0-31.0); MEAN CORPUSCULAR HGB CONC 34.1 pg (28.0-36.0); MEAN PLATELET VOLUME 7.5 fl; MONOCYTE ABSOLUTE 0.9 Th/cmm (0.3-1.0); NEUTROPHILE ABSOLUTE 4.7 Th/cmm (1.8-8.0); PLATELET COUNT 335 Th/cmm (150-400); RED BLOOD COUNT 2.73 Mil/cmm (3.80-5.10); RED CELL DISTRIBUTION WIDTH 14.3 % (11.5-20.0); WHITE BLOOD COUNT 7.8 Th/cmm (4.8-10.8)
[2017-10-14 05:49] LABS: ANION GAP 11.5 (7.0-16.0); CARBON DIOXIDE 16.2 mEq/L (21.0-31.0); CREATININE - SERUM 1.7 mg/dL (0.6-1.2); GFR AFRICAN-AMERICAN 39.3 ml/min (>90); GFR NON AFRICAN-AMERICAN 32.5 ml/min; MAGNESIUM 1.7 mg/dL (1.9-2.7); PHOSPHOROUS 4.3 mg/dL (2.5-5.0); POTASSIUM SERUM 4.7 mEq/L (3.5-5.1)
[2017-10-14] MEDS: Pantoprazole 40 mg EC Tab PO SCH (06:35)
[2017-10-14] MEDS: Sodium Chloride 0.9% 1,000 ML IV SCH ×2 (08:08→15:43)
[2017-10-14] MEDS: Hydrocodone/APAP 5mg/325mg Tab PO PRN (08:10)
--- NOTE | 2017-10-14 09:16 | General Progress Note ---
Subjective - Review of Systems Events since last encounter: patient awake resting comfortable no signs of pain Objective - Results Result Diagrams: 10/14/17 04:50 10/14/17 04:50 Recent Labs: Laboratory Last Values WBC 7.8 Th/cmm (4.8-10.8) 10/14/17 04:50 RBC 2.73 Mil/cmm (3.80-5.10) L 10/14/17 04:50 Hgb 8.4 gm/dL (12-16) L 10/14/17 04:50 Hct 24.5 % (41.0-60) L 10/14/17 04:50 MCV 89.8 fl (81-100) 10/14/17 04:50 MCH 30.7 pg (27.0-31.0) 10/14/17 04:50 MCHC Differential 34.1 pg (28.0-36.0) 10/14/17 04:50 RDW 14.3 % (11.5-20.0) 10/14/17 04:50 Plt Count 335 Th/cmm (150-400) 10/14/17 04:50 MPV 7.5 fl 10/14/17 04:50 Neutrophils % 60.3 % (40.0-80.0) 10/14/17 04:50 Lymphocytes % 23.2 % (20.0-50.0) 10/14/17 04:50 Monocytes % 11.6 % (2.0-10.0) H 10/14/17 04:50 Eosinophils % 3.8 % (0.0-5.0) 10/14/17 04:50 Basophils % 1.1 % (0.0-2.0) 10/14/17 04:50 Eos Smear Source URINE 10/13/17 14:25 Eos Smear Total Cells NONE SEEN (NONE SEEN) 10/13/17 14:25 PT 9.5 SECONDS (9.5-11.5) 10/12/17 15:37 INR 0.91 (0.5-1.4) 10/12/17 15:37 PTT (Actin FS) 30.5 SECONDS (26.0-38.0) 10/12/17 15:37 Sodium 132 mEq/L (136-145) L 10/14/17 04:50 Potassium 4.7 mEq/L (3.5-5.1) 10/14/17 04:50 Chloride 109 mEq/L (98-107) H 10/14/17 04:50 Carbon Dioxide 16.2 mEq/L (21.0-31.0) L 10/14/17 04:50 Anion Gap 11.5 (7.0-16.0) 10/14/17 04:50 BUN 35 mg/dL (7-25) H 10/14/17 04:50 Creatinine 1.7 mg/dL (0.6-1.2) H 10/14/17 04:50 Est GFR ( Amer) 39.3 ml/min (>90) 10/14/17 04:50 Est GFR (Non-Af Amer) 32.5 ml/min 10/14/17 04:50 BUN/Creatinine Ratio 20.6 10/14/17 04:50 Glucose 95 mg/dL (70-105) 10/14/17 04:50 Uric Acid 5.0 mg/dL (2.3-6.6) 10/14/17 04:50 Calcium 9.0 mg/dL (8.6-10.3) 10/14/17 04:50 Phosphorus 4.3 mg/dL (2.5-5.0) 10/14/17 04:50 Magnesium 1.7 mg/dL (1.9-2.7) L 10/14/17 04:50 Total Bilirubin 0.2 mg/dL (0.3-1.0) L 10/13/17 04:50 AST 10 U/L (13-39) L 10/13/17 04:50 ALT 7 U/L (7-52) 10/13/17 04:50 Alkaline Phosphatase 90 U/L (34-104) 10/13/17 04:50 Troponin I < 0.01 ng/mL (0.01-0.05) L 10/12/17 15:37 Total Protein 6.6 gm/dL (6.0-8.3) 10/13/17 04:50 Albumin 3.3 gm/dL (3.7-5.3) L 10/13/17 04:50 Globulin 3.3 gm/dL 10/13/17 04:50 Albumin/Globulin Ratio 1.0 (1.0-1.8) 10/13/17 04:50 Triglycerides 92 mg/dL (<150) 10/13/17 04:50 Cholesterol 127 mg/dL (<200) 10/13/17 04:50 LDL Cholesterol Direct 77 mg/dL (75-193) 10/13/17 04:50 HDL Cholesterol 34 mg/dL (23-92) 10/13/17 04:50 TSH 1.96 uIU/ml (0.34-5.60) 10/13/17 04:50 Urine Source MIDSTREAM 10/13/17 14:25 Urine Color YELLOW 10/13/17 14:25 Urine Clarity HAZY (CLEAR) 10/13/17 14:25 Urine pH 6.0 (4.6 - 8.0) 10/13/17 14:25 Ur Specific [place] <= 1.005 (1.005-1.030) 10/13/17 14:25 Urine Protein 30 mg/dL (NEGATIVE) H 10/13/17 14:25 Urine Glucose (UA) NEGATIVE mg/dL (NEGATIVE) 10/13/17 14:25 Urine Ketones NEGATIVE mg/dL (NEGATIVE) 10/13/17 14:25 Urine Blood TRACE (NEGATIVE) 10/13/17 14:25 Urine Nitrate NEGATIVE (NEGATIVE) 10/13/17 14:25 Urine Bilirubin NEGATIVE (NEGATIVE) 10/13/17 14:25 Urine Urobilinogen 0.2 E.U./dL (0.2 - 1.0) 10/13/17 14:25 Ur Leukocyte Esterase LARGE (NEGATIVE) H 10/13/17 14:25 Urine RBC 2-5 /hpf (0-5) 10/13/17 14:25 Urine WBC 6-10 /hpf (0-5) H 10/13/17 14:25 Ur Epithelial Cells MODERATE /lpf (FEW) 10/13/17 14:25 Urine Bacteria 1+ /hpf (NONE SEEN) H 10/13/17 14:25 Ur Random Sodium 64 mmol/L 10/13/17 14:25 Urine Creatinine 33.0 mg/dl (28.0-217.0) 10/13/17 14:25 - Physical Exam Vitals and I&O: Vital Signs Temp 97.8 F 10/14/17 08:00 Pulse 63 10/14/17 08:13 Resp 18 10/14/17 08:00 BP 149/67 10/14/17 08:13 Pulse Ox 96 10/14/17 08:00 Intake & Output 10/13/17 10/14/17 10/14/17 18:59 06:59 18:59 Intake Total 2800 1000 1000 Balance 2800 1000 1000 Weight (lbs) 84.504 kg Intake: Intake, IV Amount 1000 1000 1000 Sodium Chloride 0.9% 1, 1000 1000 1000 000 ml @ 125 mls/hr IV . Q8H [facility] Rx#:[id number] Oral 1800 Other: # Voids 10 # Bowel Movements 1 Weight Source Bedscale Active Medications: Current Medications Acetaminophen (Tylenol) 650 mg PO DAILY [facility] Stop: 12/12/17 08:59 Last Admin: 10/14/17 08:13 Dose: Not Given Acetaminophen/Hydrocodone Bitart ([place] 5mg/325mg) 1 tab PO Q6H PRN PRN Reason: Severe Pain Stop: 12/11/17 20:19 Last Admin: 10/14/17 08:10 Dose: 1 tab Amlodipine Besylate (Norvasc) 10 mg PO DAILY [facility] Stop: 12/12/17 08:59 Last Admin: 10/13/17 08:58 Dose: 10 mg Enoxaparin Sodium (Lovenox) 30 mg SUBQ Q24H [facility] Stop: 12/11/17 21:59 Last Admin: 10/13/17 23:02 Dose: 30 mg Ceftriaxone Sodium 1 gm/ (Sodium Chloride) 50 mls @ 100 mls/hr IV Q24HR [facility] Stop: 12/11/17 19:59 Last Admin: 10/13/17 20:56 Dose: 100 mls/hr Sodium Chloride (Nacl 0.9%) 1,000 mls @ 125 mls/hr IV .Q8H [facility] Stop: 12/11/17 20:44 Last Admin: 10/14/17 08:08 Dose: 125 mls/hr Metoprolol Tartrate (Lopressor) 50 mg PO Q12H [facility] Stop: 12/11/17 20:29 Last Admin: 10/14/17 08:13 Dose: Not Given Morphine Sulfate (Morphine) 1 mg IVP Q4HR PRN PRN Reason: Pain (Moderate) Stop: 12/12/17 00:32 Morphine Sulfate (Morphine) 2 mg IVP Q4HR PRN PRN Reason: Pain (Severe) Stop: 12/12/17 00:32 Last Admin: 10/13/17 05:18 Dose: 2 mg Pantoprazole Sodium (Protonix) 40 mg PO QDAC [facility] Stop: 12/12/17 07:29 Last Admin: 10/14/17 06:35 Dose: 40 mg Assessment/Plan - Problem List Patient Problems: All Active Problems HYPONATREMIA WITH WEAKNESS AND N/V (Acute) Nutritional Asmnt/Malnutr-PDOC - Dietary Evaluation Malnutrition Findings (Please click <Entered> for more info): Nutritional Asmnt/Malnutrition Start: 10/13/17 15: 07 Text: Status: Complete Freq: Protocol: Document 10/13/17 15:07 LCHENG (Rec: 10/13/17 15:22 LCHENG [id number]) Nutritional Asmnt/Malnutrition Patient General Information Nutritional Screening High Risk Diagnosis dehydration, anemia Pertinent Medical Hx/Surgical Hx HTN, PUD/GERD, arthritis, hip fx Subjective Information Pt seen lying in bed at time of visit. Congolese speaker noted. Per nurse, pt consumed about 30% of breakfast this morning, no problem of chewing . Current Diet Order/ Nutrition Support CCHO, soft mechanical Pertinent Medications protonix, nacl 0.9% Pertinent Labs 10/13 Na 128, BUN 41, Cr 1.8, Glucose 102, alb 3.3 10/12 Na 124, K 5.4, Cl 95, BUN 49, Cr 2.0, glucose 135 Nutritional Hx/Data Height 1.65 m Height (Calculated Centimeters) 165.1 Current Weight (lbs) 84.368 kg Weight (Calculated Kilograms) 84.4 Weight (Calculated Grams) 23382.2 [place] Body Weight 125 Body Mass Index (BMI) 30.9 Weight Status Obese GI Symptoms GI Symptoms None Last BM 10/13 Difficult in: None Skin Integrity/Comment: HX LEFT HIP FX, LEG BRACE IN PLACE Estimated Nutritional Goals BEE in Kcals: Adj wt of IBW Calories/Kcals/Kg 25-30 Kcals Calculated [id number] Protein: Adj wt of IBW Protein g/k monitor renal labs Protein Calculated 64 Fluid: ml 1600-1920ml (1ml/kcal) Nutritional Problem 1. Problem Problem altered nutrition related labs Etiology electrolytes imbalance Signs/Symptoms: Na 128 Malnutrition Alert Is there a minimum of two criteria No selected? Query Text:Check all the applicable criteria. A minimum of two criteria are recommended for diagnosis of either severe or non-severe malnutrition. Malnutrition Related to Morbid Obesity Malnutrition related to morbid obesity No Intervention/Recommendation Comments 1. Continue with [facility] soft mech diet as ordered. Nurses to assist pt with meals and encourage oral intake. 2. Monitor PO intake, wt, labs and skin integrity 3. F/U as moderate risk in 3-5 days, 10/16-10/18, PO check Expected Outcomes/Goals Expected Outcomes/Goals 1. PO intake to meet at least 75% of nutritional needs. 2. Wt stability, skin to remain intact, labs to approach WNL.
--- NOTE | 2017-10-14 09:26 | Diagnostic Imaging Report ---
Exam: Renal ultrasound HISTORY: Chronic renal failure. Findings: Real-time ultrasound examination of the kidneys performed multiple planes. The study demonstrates a right kidney measuring 9.9 x 4.5 x 6.4 cm diameter. Left kidney measures 11.5 x 5.4 x 4.7 cm diameter. There is no evidence of obstructive uropathy or nephrolithiasis. A small 1 cm cyst is noted in left kidney. Urinary bladder is intact. IMPRESSION: Essentially unremarkable examination of the kidneys.
[2017-10-14 12:41] LABS: CREATININEURINE 25.5 mg/dl; MICROALBUMIN RANDOM RUINE 202.1
--- NOTE | 2017-10-14 14:28 | General Progress Note ---
Subjective - Review of Systems Service Date: 10/14/17 Subjective: still w/ left leg pain Objective - Results Result Diagrams: 10/14/17 04:50 10/14/17 04:50 Recent Labs: Laboratory Last Values WBC 7.8 Th/cmm (4.8-10.8) 10/14/17 04:50 RBC 2.73 Mil/cmm (3.80-5.10) L 10/14/17 04:50 Hgb 8.4 gm/dL (12-16) L 10/14/17 04:50 Hct 24.5 % (41.0-60) L 10/14/17 04:50 MCV 89.8 fl (81-100) 10/14/17 04:50 MCH 30.7 pg (27.0-31.0) 10/14/17 04:50 MCHC Differential 34.1 pg (28.0-36.0) 10/14/17 04:50 RDW 14.3 % (11.5-20.0) 10/14/17 04:50 Plt Count 335 Th/cmm (150-400) 10/14/17 04:50 MPV 7.5 fl 10/14/17 04:50 Neutrophils % 60.3 % (40.0-80.0) 10/14/17 04:50 Lymphocytes % 23.2 % (20.0-50.0) 10/14/17 04:50 Monocytes % 11.6 % (2.0-10.0) H 10/14/17 04:50 Eosinophils % 3.8 % (0.0-5.0) 10/14/17 04:50 Basophils % 1.1 % (0.0-2.0) 10/14/17 04:50 Eos Smear Source URINE 10/13/17 14:25 Eos Smear Total Cells NONE SEEN (NONE SEEN) 10/13/17 14:25 PT 9.5 SECONDS (9.5-11.5) 10/12/17 15:37 INR 0.91 (0.5-1.4) 10/12/17 15:37 PTT (Actin FS) 30.5 SECONDS (26.0-38.0) 10/12/17 15:37 Sodium 132 mEq/L (136-145) L 10/14/17 04:50 Potassium 4.7 mEq/L (3.5-5.1) 10/14/17 04:50 Chloride 109 mEq/L (98-107) H 10/14/17 04:50 Carbon Dioxide 16.2 mEq/L (21.0-31.0) L 10/14/17 04:50 Anion Gap 11.5 (7.0-16.0) 10/14/17 04:50 BUN 35 mg/dL (7-25) H 10/14/17 04:50 Creatinine 1.7 mg/dL (0.6-1.2) H 10/14/17 04:50 Est GFR ( Amer) 39.3 ml/min (>90) 10/14/17 04:50 Est GFR (Non-Af Amer) 32.5 ml/min 10/14/17 04:50 BUN/Creatinine Ratio 20.6 10/14/17 04:50 Glucose 95 mg/dL (70-105) 10/14/17 04:50 Uric Acid 5.0 mg/dL (2.3-6.6) 10/14/17 04:50 Calcium 9.0 mg/dL (8.6-10.3) 10/14/17 04:50 Phosphorus 4.3 mg/dL (2.5-5.0) 10/14/17 04:50 Magnesium 1.7 mg/dL (1.9-2.7) L 10/14/17 04:50 Total Bilirubin 0.2 mg/dL (0.3-1.0) L 10/13/17 04:50 AST 10 U/L (13-39) L 10/13/17 04:50 ALT 7 U/L (7-52) 10/13/17 04:50 Alkaline Phosphatase 90 U/L (34-104) 10/13/17 04:50 Troponin I < 0.01 ng/mL (0.01-0.05) L 10/12/17 15:37 Total Protein 6.6 gm/dL (6.0-8.3) 10/13/17 04:50 Albumin 3.3 gm/dL (3.7-5.3) L 10/13/17 04:50 Globulin 3.3 gm/dL 10/13/17 04:50 Albumin/Globulin Ratio 1.0 (1.0-1.8) 10/13/17 04:50 Triglycerides 92 mg/dL (<150) 10/13/17 04:50 Cholesterol 127 mg/dL (<200) 10/13/17 04:50 LDL Cholesterol Direct 77 mg/dL (75-193) 10/13/17 04:50 HDL Cholesterol 34 mg/dL (23-92) 10/13/17 04:50 TSH 1.96 uIU/ml (0.34-5.60) 10/13/17 04:50 Urine Source MIDSTREAM 10/13/17 14:25 Urine Color YELLOW 10/13/17 14:25 Urine Clarity HAZY (CLEAR) 10/13/17 14:25 Urine pH 6.0 (4.6 - 8.0) 10/13/17 14:25 Ur Specific [place] <= 1.005 (1.005-1.030) 10/13/17 14:25 Urine Protein 30 mg/dL (NEGATIVE) H 10/13/17 14:25 Urine Glucose (UA) NEGATIVE mg/dL (NEGATIVE) 10/13/17 14:25 Urine Ketones NEGATIVE mg/dL (NEGATIVE) 10/13/17 14:25 Urine Blood TRACE (NEGATIVE) 10/13/17 14:25 Urine Nitrate NEGATIVE (NEGATIVE) 10/13/17 14:25 Urine Bilirubin NEGATIVE (NEGATIVE) 10/13/17 14:25 Urine Urobilinogen 0.2 E.U./dL (0.2 - 1.0) 10/13/17 14:25 Ur Leukocyte Esterase LARGE (NEGATIVE) H 10/13/17 14:25 Urine RBC 2-5 /hpf (0-5) 10/13/17 14:25 Urine WBC 6-10 /hpf (0-5) H 10/13/17 14:25 Ur Epithelial Cells MODERATE /lpf (FEW) 10/13/17 14:25 Urine Bacteria 1+ /hpf (NONE SEEN) H 10/13/17 14:25 Ur Random Sodium 64 mmol/L 10/13/17 14:25 Urine Creatinine 25.5 mg/dl 10/13/17 14:25 Urine Microalbumin 202.1 10/13/17 14:25 Microalb/Creat Ratio 792.5 10/13/17 14:25 - Physical Exam Vitals and I&O: Vital Signs Temp 98.1 F 10/14/17 11:38 Pulse 70 10/14/17 11:38 Resp 17 10/14/17 11:38 BP 120/62 10/14/17 11:38 Pulse Ox 96 10/14/17 11:38 Intake & Output 10/13/17 10/14/17 10/14/17 18:59 06:59 18:59 Intake Total 2800 1000 1000 Balance 2800 1000 1000 Weight (lbs) 84.504 kg Intake: Intake, IV Amount 1000 1000 1000 Sodium Chloride 0.9% 1, 1000 1000 1000 000 ml @ 125 mls/hr IV . Q8H [facility] Rx#:[id number] Oral 1800 Other: # Voids 10 # Bowel Movements 1 Weight Source Bedscale Active Medications: Current Medications Acetaminophen (Tylenol) 650 mg PO DAILY [facility] Stop: 12/12/17 08:59 Last Admin: 10/14/17 08:13 Dose: Not Given Acetaminophen/Hydrocodone Bitart ([place] 5mg/325mg) 1 tab PO Q6H PRN PRN Reason: Severe Pain Stop: 12/11/17 20:19 Last Admin: 10/14/17 08:10 Dose: 1 tab Amlodipine Besylate (Norvasc) 10 mg PO DAILY [facility] Stop: 12/12/17 08:59 Last Admin: 10/14/17 11:39 Dose: Not Given Enoxaparin Sodium (Lovenox) 30 mg SUBQ Q24H [facility] Stop: 12/11/17 21:59 Last Admin: 10/13/17 23:02 Dose: 30 mg Ceftriaxone Sodium 1 gm/ (Sodium Chloride) 50 mls @ 100 mls/hr IV Q24HR [facility] Stop: 12/11/17 19:59 Last Admin: 10/13/17 20:56 Dose: 100 mls/hr Sodium Chloride (Nacl 0.9%) 1,000 mls @ 125 mls/hr IV .Q8H [facility] Stop: 12/11/17 20:44 Last Admin: 10/14/17 08:08 Dose: 125 mls/hr Metoprolol Tartrate (Lopressor) 50 mg PO Q12H [facility] Stop: 12/11/17 20:29 Last Admin: 10/14/17 08:13 Dose: Not Given Morphine Sulfate (Morphine) 1 mg IVP Q4HR PRN PRN Reason: Pain (Moderate) Stop: 12/12/17 00:32 Morphine Sulfate (Morphine) 2 mg IVP Q4HR PRN PRN Reason: Pain (Severe) Stop: 12/12/17 00:32 Last Admin: 10/13/17 05:18 Dose: 2 mg Pantoprazole Sodium (Protonix) 40 mg PO QDAC [facility] Stop: 12/12/17 07:29 Last Admin: 10/14/17 06:35 Dose: 40 mg Sodium Bicarbonate (Sodium Bicarbonate) 650 mg PO BID [facility]; Protocol Stop: 12/13/17 16:59 General: Alert, Oriented x3, No acute distress HEENT: Atraumatic, Mucous membr. moist/pink Neck: Supple, +2 carotid pulse wo bruit Cardiovascular: Regular rate, Normal S1, Normal S2 Lungs: Clear to auscultation Abdomen: Bowel sounds, Soft Extremities: Other (brace w/ brackets left leg), no Edema Neurological: Sensation intact Skin: no Rash Assessment/Plan - Problem List Patient Problems: All Active Problems HYPONATREMIA WITH WEAKNESS AND N/V (Acute) - Assessment Assessment: CKD Hyponatremia improving Gastritis Ess Htn AG met acid - Plan Plan: Lab - Result Diagrams 10/14/17 04:50 10/14/17 04:50 Current Medications Acetaminophen (Tylenol) 650 mg PO DAILY [facility] Stop: 12/12/17 08:59 Last Admin: 10/14/17 08:13 Dose: Not Given Acetaminophen/Hydrocodone Bitart ([place] 5mg/325mg) 1 tab PO Q6H PRN PRN Reason: Severe Pain Stop: 12/11/17 20:19 Last Admin: 10/14/17 08:10 Dose: 1 tab Amlodipine Besylate (Norvasc) 10 mg PO DAILY [facility] Stop: 12/12/17 08:59 Last Admin: 10/14/17 11:39 Dose: Not Given Enoxaparin Sodium (Lovenox) 30 mg SUBQ Q24H [facility] Stop: 12/11/17 21:59 Last Admin: 10/13/17 23:02 Dose: 30 mg Ceftriaxone Sodium 1 gm/ (Sodium Chloride) 50 mls @ 100 mls/hr IV Q24HR [facility] Stop: 12/11/17 19:59 Last Admin: 10/13/17 20:56 Dose: 100 mls/hr Sodium Chloride (Nacl 0.9%) 1,000 mls @ 125 mls/hr IV .Q8H [facility] Stop: 12/11/17 20:44 Last Admin: 10/14/17 08:08 Dose: 125 mls/hr Metoprolol Tartrate (Lopressor) 50 mg PO Q12H [facility] Stop: 12/11/17 20:29 Last Admin: 10/14/17 08:13 Dose: Not Given Morphine Sulfate (Morphine) 1 mg IVP Q4HR PRN PRN Reason: Pain (Moderate) Stop: 12/12/17 00:32 Morphine Sulfate (Morphine) 2 mg IVP Q4HR PRN PRN Reason: Pain (Severe) Stop: 12/12/17 00:32 Last Admin: 10/13/17 05:18 Dose: 2 mg Pantoprazole Sodium (Protonix) 40 mg PO QDAC [facility] Stop: 12/12/17 07:29 Last Admin: 10/14/17 06:35 Dose: 40 mg Sodium Bicarbonate (Sodium Bicarbonate) 650 mg PO BID [facility]; Protocol Stop: 12/13/17 16:59 Lab - Result Diagrams 10/14/17 04:50 10/14/17 04:50 Kidney fnc improved but basically the same Na up to 132 continue hydration start NaHC03 analgesics Nutritional Asmnt/Malnutr-PDOC - Dietary Evaluation Malnutrition Findings (Please click <Entered> for more info): Nutritional Asmnt/Malnutrition Start: 10/13/17 15: 07 Text: Status: Complete Freq: Protocol: Document 10/13/17 15:07 LCHENG (Rec: 10/13/17 15:22 LCHENG [id number]) Nutritional Asmnt/Malnutrition Patient General Information Nutritional Screening High Risk Diagnosis dehydration, anemia Pertinent Medical Hx/Surgical Hx HTN, PUD/GERD, arthritis, hip fx Subjective Information Pt seen lying in bed at time of visit. Kyrgyz speaker noted. Per nurse, pt consumed about 30% of breakfast this morning, no problem of chewing . Current Diet Order/ Nutrition Support CCHO, soft mechanical Pertinent Medications protonix, nacl 0.9% Pertinent Labs 10/13 Na 128, BUN 41, Cr 1.8, Glucose 102, alb 3.3 10/12 Na 124, K 5.4, Cl 95, BUN 49, Cr 2.0, glucose 135 Nutritional Hx/Data Height 1.65 m Height (Calculated Centimeters) 165.1 Current Weight (lbs) 84.368 kg Weight (Calculated Kilograms) 84.4 Weight (Calculated Grams) 20726.2 [place] Body Weight 125 Body Mass Index (BMI) 30.9 Weight Status Obese GI Symptoms GI Symptoms None Last BM 10/13 Difficult in: None Skin Integrity/Comment: HX LEFT HIP FX, LEG BRACE IN PLACE Estimated Nutritional Goals BEE in Kcals: Adj wt of IBW Calories/Kcals/Kg 25-30 Kcals Calculated 7676-1090 Protein: Adj wt of IBW Protein g/k monitor renal labs Protein Calculated 64 Fluid: ml 1600-1920ml (1ml/kcal) Nutritional Problem 1. Problem Problem altered nutrition related labs Etiology electrolytes imbalance Signs/Symptoms: Na 128 Malnutrition Alert Is there a minimum of two criteria No selected? Query Text:Check all the applicable criteria. A minimum of two criteria are recommended for diagnosis of either severe or non-severe malnutrition. Malnutrition Related to Morbid Obesity Malnutrition related to morbid obesity No Intervention/Recommendation Comments 1. Continue with [facility] soft mech diet as ordered. Nurses to assist pt with meals and encourage oral intake. 2. Monitor PO intake, wt, labs and skin integrity 3. F/U as moderate risk in 3-5 days, 10/16-10/18, PO check Expected Outcomes/Goals Expected Outcomes/Goals 1. PO intake to meet at least 75% of nutritional needs. 2. Wt stability, skin to remain intact, labs to approach WNL.
[2017-10-14] MEDS ORDERED: Mag Sulfate 2gm/50mL Premix 2 GM/50 ML BAG IV ONE (14:38)
[2017-10-14] MEDS: cefTRIAXone 1 GM in Sodium Chloride 0.9% 50 ML IV SCH (20:48)
[2017-10-14] MEDS: Enoxaparin 30 mg/0.3 mL 0.3mL Syr SUBQ SCH (21:58)
--- NOTE | 2017-10-14 23:55 | Infectious Disease Prog Note ---
Infectious Disease Subjective - Review of Systems Service Date: 10/14/17 Subjective: There is no new change. Infectious Disease Objective - Results Result Diagrams: 10/16/17 05:40 10/16/17 05:40 Recent Labs: Laboratory Last Values WBC 7.8 Th/cmm (4.8-10.8) 10/14/17 04:50 RBC 2.73 Mil/cmm (3.80-5.10) L 10/14/17 04:50 Hgb 8.4 gm/dL (12-16) L 10/14/17 04:50 Hct 24.5 % (41.0-60) L 10/14/17 04:50 MCV 89.8 fl (81-100) 10/14/17 04:50 MCH 30.7 pg (27.0-31.0) 10/14/17 04:50 MCHC Differential 34.1 pg (28.0-36.0) 10/14/17 04:50 RDW 14.3 % (11.5-20.0) 10/14/17 04:50 Plt Count 335 Th/cmm (150-400) 10/14/17 04:50 MPV 7.5 fl 10/14/17 04:50 Neutrophils % 60.3 % (40.0-80.0) 10/14/17 04:50 Lymphocytes % 23.2 % (20.0-50.0) 10/14/17 04:50 Monocytes % 11.6 % (2.0-10.0) H 10/14/17 04:50 Eosinophils % 3.8 % (0.0-5.0) 10/14/17 04:50 Basophils % 1.1 % (0.0-2.0) 10/14/17 04:50 Eos Smear Source URINE 10/13/17 14:25 Eos Smear Total Cells NONE SEEN (NONE SEEN) 10/13/17 14:25 PT 9.5 SECONDS (9.5-11.5) 10/12/17 15:37 INR 0.91 (0.5-1.4) 10/12/17 15:37 PTT (Actin FS) 30.5 SECONDS (26.0-38.0) 10/12/17 15:37 Sodium 132 mEq/L (136-145) L 10/14/17 04:50 Potassium 4.7 mEq/L (3.5-5.1) 10/14/17 04:50 Chloride 109 mEq/L (98-107) H 10/14/17 04:50 Carbon Dioxide 16.2 mEq/L (21.0-31.0) L 10/14/17 04:50 Anion Gap 11.5 (7.0-16.0) 10/14/17 04:50 BUN 35 mg/dL (7-25) H 10/14/17 04:50 Creatinine 1.7 mg/dL (0.6-1.2) H 10/14/17 04:50 Est GFR ( Amer) 39.3 ml/min (>90) 10/14/17 04:50 Est GFR (Non-Af Amer) 32.5 ml/min 10/14/17 04:50 BUN/Creatinine Ratio 20.6 10/14/17 04:50 Glucose 95 mg/dL (70-105) 10/14/17 04:50 Uric Acid 5.0 mg/dL (2.3-6.6) 10/14/17 04:50 Calcium 9.0 mg/dL (8.6-10.3) 10/14/17 04:50 Phosphorus 4.3 mg/dL (2.5-5.0) 10/14/17 04:50 Magnesium 1.7 mg/dL (1.9-2.7) L 10/14/17 04:50 Total Bilirubin 0.2 mg/dL (0.3-1.0) L 10/13/17 04:50 AST 10 U/L (13-39) L 10/13/17 04:50 ALT 7 U/L (7-52) 10/13/17 04:50 Alkaline Phosphatase 90 U/L (34-104) 10/13/17 04:50 Troponin I < 0.01 ng/mL (0.01-0.05) L 10/12/17 15:37 Total Protein 6.6 gm/dL (6.0-8.3) 10/13/17 04:50 Albumin 3.3 gm/dL (3.7-5.3) L 10/13/17 04:50 Globulin 3.3 gm/dL 10/13/17 04:50 Albumin/Globulin Ratio 1.0 (1.0-1.8) 10/13/17 04:50 Triglycerides 92 mg/dL (<150) 10/13/17 04:50 Cholesterol 127 mg/dL (<200) 10/13/17 04:50 LDL Cholesterol Direct 77 mg/dL (75-193) 10/13/17 04:50 HDL Cholesterol 34 mg/dL (23-92) 10/13/17 04:50 TSH 1.96 uIU/ml (0.34-5.60) 10/13/17 04:50 Urine Source MIDSTREAM 10/13/17 14:25 Urine Color YELLOW 10/13/17 14:25 Urine Clarity HAZY (CLEAR) 10/13/17 14:25 Urine pH 6.0 (4.6 - 8.0) 10/13/17 14:25 Ur Specific [place] <= 1.005 (1.005-1.030) 10/13/17 14:25 Urine Protein 30 mg/dL (NEGATIVE) H 10/13/17 14:25 Urine Glucose (UA) NEGATIVE mg/dL (NEGATIVE) 10/13/17 14:25 Urine Ketones NEGATIVE mg/dL (NEGATIVE) 10/13/17 14:25 Urine Blood TRACE (NEGATIVE) 10/13/17 14:25 Urine Nitrate NEGATIVE (NEGATIVE) 10/13/17 14:25 Urine Bilirubin NEGATIVE (NEGATIVE) 10/13/17 14:25 Urine Urobilinogen 0.2 E.U./dL (0.2 - 1.0) 10/13/17 14:25 Ur Leukocyte Esterase LARGE (NEGATIVE) H 10/13/17 14:25 Urine RBC 2-5 /hpf (0-5) 10/13/17 14:25 Urine WBC 6-10 /hpf (0-5) H 10/13/17 14:25 Ur Epithelial Cells MODERATE /lpf (FEW) 10/13/17 14:25 Urine Bacteria 1+ /hpf (NONE SEEN) H 10/13/17 14:25 Ur Random Sodium 64 mmol/L 10/13/17 14:25 Urine Creatinine 25.5 mg/dl 10/13/17 14:25 Urine Microalbumin 202.1 10/13/17 14:25 Microalb/Creat Ratio 792.5 10/13/17 14:25 - Physical Exam Vitals and I&O: Vital Signs Temp 98.3 F 10/14/17 15:47 Pulse 70 10/14/17 20:48 Resp 18 10/14/17 20:00 BP 142/72 10/14/17 20:48 Pulse Ox 97 10/14/17 15:47 Intake & Output 10/14/17 10/14/17 10/15/17 06:59 18:59 06:59 Intake Total 1050 3801.917 Balance 1050 3801.917 Weight (lbs) 84.504 kg Intake: Intake, IV Amount 1050 2001.917 Magnesium Sulfate 2 gm In 54 Sodium Chloride 0.9% 50 ml @ 27 mls/hr IV ONCE ONE Rx#:[id number] Sodium Chloride 0.9% 1, 1000 1947.917 000 ml @ 125 mls/hr IV . Q8H [facility] Rx#:[id number] cefTRIAXone 1 gm In 50 Sodium Chloride 0.9% 50 ml @ 100 mls/hr IV Q24HR [facility] Rx#:[id number] Oral 1800 Other: # Voids 4 # Bowel Movements 0 Weight Source Bedscale Active Medications: Current Medications Acetaminophen (Tylenol) 650 mg PO DAILY [facility] Stop: 12/12/17 08:59 Last Admin: 10/14/17 08:13 Dose: Not Given Acetaminophen/Hydrocodone Bitart ([place] 5mg/325mg) 1 tab PO Q6H PRN PRN Reason: Severe Pain Stop: 12/11/17 20:19 Last Admin: 10/14/17 08:10 Dose: 1 tab Amlodipine Besylate (Norvasc) 10 mg PO DAILY [facility] Stop: 12/12/17 08:59 Last Admin: 10/14/17 11:39 Dose: Not Given Enoxaparin Sodium (Lovenox) 30 mg SUBQ Q24H [facility] Stop: 12/11/17 21:59 Last Admin: 10/14/17 21:58 Dose: 30 mg Ceftriaxone Sodium 1 gm/ (Sodium Chloride) 50 mls @ 100 mls/hr IV Q24HR [facility] Stop: 12/11/17 19:59 Last Admin: 10/14/17 20:48 Dose: 100 mls/hr Sodium Chloride (Nacl 0.9%) 1,000 mls @ 125 mls/hr IV .Q8H [facility] Stop: 12/11/17 20:44 Last Admin: 10/14/17 15:43 Dose: 125 mls/hr Metoprolol Tartrate (Lopressor) 50 mg PO Q12H [facility] Stop: 12/11/17 20:29 Last Admin: 10/14/17 20:48 Dose: 50 mg Morphine Sulfate (Morphine) 1 mg IVP Q4HR PRN PRN Reason: Pain (Moderate) Stop: 12/12/17 00:32 Morphine Sulfate (Morphine) 2 mg IVP Q4HR PRN PRN Reason: Pain (Severe) Stop: 12/12/17 00:32 Last Admin: 10/13/17 05:18 Dose: 2 mg Pantoprazole Sodium (Protonix) 40 mg PO QDAC [facility] Stop: 12/12/17 07:29 Last Admin: 10/14/17 06:35 Dose: 40 mg Sodium Bicarbonate (Sodium Bicarbonate) 650 mg PO BID [facility]; Protocol Stop: 12/13/17 16:59 Last Admin: 10/14/17 16:43 Dose: 650 mg General: no acute distress, well developed, well nourished HEENT: atraumatic, normocephalic, PERRLA Neck: supple, no thyromegaly, no lymphadenopathy Cardiovascular: S1S2, regular Lungs: clear to auscultation bilaterally, clear to percussion, crackles Abdomen: soft, no tender, no distended, no mass Extremities: no cyanosis, no clubbing, no edema Neurological: awake, alert, oriented Skin: intact, rash Infectious Disease Assmt/Plan - Problem List Patient Problems: All Active Problems HYPONATREMIA WITH WEAKNESS AND N/V (Acute) - Assessment Assessment: 1. UTI. 2. Hyponatremia. 3. Osteoarthritis. 4. Status post ORIF of left distal femur. - Plan Plan: Continue Rocephin. All of the culture report and depending on the culture report, will define final antibiotic regimen. Nutritional Asmnt/Malnutr-PDOC - Dietary Evaluation Malnutrition Findings (Please click <Entered> for more info): Nutritional Asmnt/Malnutrition Start: 10/13/17 15: 07 Text: Status: Complete Freq: Protocol: Document 10/13/17 15:07 LCHENG (Rec: 10/13/17 15:22 [email or web address]) Nutritional Asmnt/Malnutrition Patient General Information Nutritional Screening High Risk Diagnosis dehydration, anemia Pertinent Medical Hx/Surgical Hx HTN, PUD/GERD, arthritis, hip fx Subjective Information Pt seen lying in bed at time of visit. Congolese speaker noted. Per nurse, pt consumed about 30% of breakfast this morning, no problem of chewing . Current Diet Order/ Nutrition Support CCHO, soft mechanical Pertinent Medications protonix, nacl 0.9% Pertinent Labs 10/13 Na 128, BUN 41, Cr 1.8, Glucose 102, alb 3.3 10/12 Na 124, K 5.4, Cl 95, BUN 49, Cr 2.0, glucose 135 Nutritional Hx/Data Height 1.65 m Height (Calculated Centimeters) 165.1 Current Weight (lbs) 84.368 kg Weight (Calculated Kilograms) 84.4 Weight (Calculated Grams) 42089.2 [place] Body Weight 125 Body Mass Index (BMI) 30.9 Weight Status Obese GI Symptoms GI Symptoms None Last BM 10/13 Difficult in: None Skin Integrity/Comment: HX LEFT HIP FX, LEG BRACE IN PLACE Estimated Nutritional Goals BEE in Kcals: Adj wt of IBW Calories/Kcals/Kg 25-30 Kcals Calculated 0454-7938 Protein: Adj wt of IBW Protein g/k monitor renal labs Protein Calculated 64 Fluid: ml 1600-1920ml (1ml/kcal) Nutritional Problem 1. Problem Problem altered nutrition related labs Etiology electrolytes imbalance Signs/Symptoms: Na 128 Malnutrition Alert Is there a minimum of two criteria No selected? Query Text:Check all the applicable criteria. A minimum of two criteria are recommended for diagnosis of either severe or non-severe malnutrition. Malnutrition Related to Morbid Obesity Malnutrition related to morbid obesity No Intervention/Recommendation Comments 1. Continue with [facility] soft mech diet as ordered. Nurses to assist pt with meals and encourage oral intake. 2. Monitor PO intake, wt, labs and skin integrity 3. F/U as moderate risk in 3-5 days, 10/16-10/18, PO check Expected Outcomes/Goals Expected Outcomes/Goals 1. PO intake to meet at least 75% of nutritional needs. 2. Wt stability, skin to remain intact, labs to approach WNL.
[2017-10-15] MEDS: Sodium Chloride 0.9% 1,000 ML IV SCH ×2 (02:13→10:46)
--- NOTE | 2017-10-15 03:09 | Consultation ---
DATE OF CONSULTATION: 10/14/2017 ORTHOPEDIC SURGERY CONSULTATION REASON FOR CONSULTATION: The patient is a 61-year-old lady admitted to [facility] on 10/12/2017 for treatment of medical issues with abnormal lab values and because of pain in her left lower extremity, which recently was injured and underwent treatment elsewhere. I was called in orthopedic consultation regarding her left lower extremity situation. HISTORY: The patient is not able to give me meaningful dates and numbers and medical information. Therefore, I searched the medical record at other [facility] hospitals and came up with the fact that she fell on 09/21 fracturing her left femur and came to [facility] and was then transferred to [facility] for definitive care of this injury. On 09/25/2017, she underwent surgery -- retrograde intramedullary erica fixation with 3 distal interlocking screws regarding the fracture of her distal left femoral shaft. X-rays of her injured left femur, including the upper end, show a chronic fracture / disruption of the left hip with a history of prior surgical fixation of the fracture followed by infection and then removal of hardware. This is chronic and has been in place for a number of years. Additional past history includes hypertension. PHYSICAL EXAMINATION: The patient was examined in her hospital room at [facility]. There is a knee extension splint in place on her left lower extremity. Her legs are quite short and the splint comes to just above her knee. It is a little too long for her and it is all the way down to her foot. The top edge of the splint is right at the fracture level, therefore is is not immobilizing or protecting her fracture at all. The incisions at the knee are dry and benign with surgical tremayne in place. I can range the knee through 40-50 degrees of motion without much pain. There is no instability. Neurovascular function otherwise normal. IMAGING STUDIES: I viewed the x-rays at [facility] following her surgery and compared them to x-rays taken here yesterday regarding the placement of the intramedullary erica and fractured left femur. There is no change in the acceptable position. Therefore, the construct appears stable. Of note, are paper thin cortices of her femur. She apparently has not done much ambulation or load bearing over recent years and has severe osteoporosis of the left femur. ORTHOPEDIC DIAGNOSES: 1. Status post open reduction internal fixation with retrograde intramedullary rodding and 3 distal interlocking screws fracture, distal left femoral shaft. 2. Chronic fracture, left hip with a history of prior infection. RECOMMENDATIONS: The patient does not need to have the splint in place on her left leg -- it cannot fit her and it will not do her any good; besides she is quite uncomfortable and does not like it. She can move about freely in bed. She can be on a bed to chair program with minimal weight i.e., 10 pounds on the left during transfer. Caregivers should not lift her left leg by the foot and heel - rather support her whole leg with their hands under the back of her calf and thigh where the fracture is. Her bones are so soft that the leverage by picking her leg up by the heel could easily break the bones loose around the sturdy intramedullarly erica. Follow up x-rays of the left femur in a month would be appropriate to check the progress of healing. She should have adequate vitamins and calcium foods in her diet. The wound tremayne can be removed and the wounds cleaned and dressed with Betadine. After a few days, she will need not dressings on the incisions. Thank you for allowing me to evaluate this interesting patient and participate in her care. JOB# [id number] ALEJANDRO
[2017-10-15 06:02] LABS: % BASOPHILS 1.7 % (0.0-2.0); % EOSINOPHILS 4.4 % (0.0-5.0); % LYMPHOCYTES 19.7 % (20.0-50.0); % MONOCYTES 9.6 % (2.0-10.0); % NEUTROPHILS 64.6 % (40.0-80.0); BASOPHILE ABSOLUTE 0.1 Th/cumm (0-0.2); EOSINOPHILE ABSOLUTE 0.3 Th/cmm (0.1-0.4); HEMATOCRIT 24.2 % (41.0-60); HEMOGLOBIN 8.2 gm/dL (12-16); LYMPHOCYTE ABSOLUTE 1.5 Th/cmm (1.5-3.0); MEAN CELL VOLUME 89.6 fl (81-100); MEAN CORPUSCULAR HEMOGLOBIN 30.5 pg (27.0-31.0); MEAN PLATELET VOLUME 7.2 fl; MONOCYTE ABSOLUTE 0.7 Th/cmm (0.3-1.0); NEUTROPHILE ABSOLUTE 5.1 Th/cmm (1.8-8.0); PLATELET COUNT 326 Th/cmm (150-400); RED CELL DISTRIBUTION WIDTH 14.1 % (11.5-20.0); WHITE BLOOD COUNT 7.7 Th/cmm (4.8-10.8)
[2017-10-15 06:32] LABS: ANION GAP 12.3 (7.0-16.0); CARBON DIOXIDE 16.7 mEq/L (21.0-31.0); CREATININE - SERUM 1.5 mg/dL (0.6-1.2); GFR AFRICAN-AMERICAN 45.4 ml/min (>90); GFR NON AFRICAN-AMERICAN 37.5 ml/min
[2017-10-15] MEDS: Pantoprazole 40 mg EC Tab PO SCH (06:49)
[2017-10-15] MEDS: Hydrocodone/APAP 5mg/325mg Tab PO PRN (10:44)
--- NOTE | 2017-10-15 14:21 | General Progress Note ---
Subjective - Review of Systems Service Date: 10/15/17 Subjective: less pain left leg Objective - Results Result Diagrams: 10/15/17 05:35 10/15/17 05:35 Recent Labs: Laboratory Last Values WBC 7.7 Th/cmm (4.8-10.8) 10/15/17 05:35 RBC 2.70 Mil/cmm (3.80-5.10) L 10/15/17 05:35 Hgb 8.2 gm/dL (12-16) L 10/15/17 05:35 Hct 24.2 % (41.0-60) L 10/15/17 05:35 MCV 89.6 fl (81-100) 10/15/17 05:35 MCH 30.5 pg (27.0-31.0) 10/15/17 05:35 MCHC Differential 34.0 pg (28.0-36.0) 10/15/17 05:35 RDW 14.1 % (11.5-20.0) 10/15/17 05:35 Plt Count 326 Th/cmm (150-400) 10/15/17 05:35 MPV 7.2 fl 10/15/17 05:35 Neutrophils % 64.6 % (40.0-80.0) 10/15/17 05:35 Lymphocytes % 19.7 % (20.0-50.0) L 10/15/17 05:35 Monocytes % 9.6 % (2.0-10.0) 10/15/17 05:35 Eosinophils % 4.4 % (0.0-5.0) 10/15/17 05:35 Basophils % 1.7 % (0.0-2.0) 10/15/17 05:35 Eos Smear Source URINE 10/13/17 14:25 Eos Smear Total Cells NONE SEEN (NONE SEEN) 10/13/17 14:25 PT 9.5 SECONDS (9.5-11.5) 10/12/17 15:37 INR 0.91 (0.5-1.4) 10/12/17 15:37 PTT (Actin FS) 30.5 SECONDS (26.0-38.0) 10/12/17 15:37 Sodium 133 mEq/L (136-145) L 10/15/17 05:35 Potassium 5.0 mEq/L (3.5-5.1) 10/15/17 05:35 Chloride 109 mEq/L (98-107) H 10/15/17 05:35 Carbon Dioxide 16.7 mEq/L (21.0-31.0) L 10/15/17 05:35 Anion Gap 12.3 (7.0-16.0) 10/15/17 05:35 BUN 31 mg/dL (7-25) H 10/15/17 05:35 Creatinine 1.5 mg/dL (0.6-1.2) H 10/15/17 05:35 Est GFR ( Amer) 45.4 ml/min (>90) 10/15/17 05:35 Est GFR (Non-Af Amer) 37.5 ml/min 10/15/17 05:35 BUN/Creatinine Ratio 20.7 10/15/17 05:35 Glucose 99 mg/dL (70-105) 10/15/17 05:35 Plasma/Ser Osmolality 282 mOsmol/kg (280-301) 10/13/17 04:50 Uric Acid 5.0 mg/dL (2.3-6.6) 10/14/17 04:50 Calcium 9.0 mg/dL (8.6-10.3) 10/15/17 05:35 Phosphorus 4.3 mg/dL (2.5-5.0) 10/14/17 04:50 Magnesium 2.0 mg/dL (1.9-2.7) 10/15/17 05:35 Total Bilirubin 0.2 mg/dL (0.3-1.0) L 10/13/17 04:50 AST 10 U/L (13-39) L 10/13/17 04:50 ALT 7 U/L (7-52) 10/13/17 04:50 Alkaline Phosphatase 90 U/L (34-104) 10/13/17 04:50 Troponin I < 0.01 ng/mL (0.01-0.05) L 10/12/17 15:37 Total Protein 6.6 gm/dL (6.0-8.3) 10/13/17 04:50 Albumin 3.3 gm/dL (3.7-5.3) L 10/13/17 04:50 Globulin 3.3 gm/dL 10/13/17 04:50 Albumin/Globulin Ratio 1.0 (1.0-1.8) 10/13/17 04:50 Triglycerides 92 mg/dL (<150) 10/13/17 04:50 Cholesterol 127 mg/dL (<200) 10/13/17 04:50 LDL Cholesterol Direct 77 mg/dL (75-193) 10/13/17 04:50 HDL Cholesterol 34 mg/dL (23-92) 10/13/17 04:50 TSH 1.96 uIU/ml (0.34-5.60) 10/13/17 04:50 Urine Source MIDSTREAM 10/13/17 14:25 Urine Color YELLOW 10/13/17 14:25 Urine Clarity HAZY (CLEAR) 10/13/17 14:25 Urine pH 6.0 (4.6 - 8.0) 10/13/17 14:25 Ur Specific [place] <= 1.005 (1.005-1.030) 10/13/17 14:25 Urine Protein 30 mg/dL (NEGATIVE) H 10/13/17 14:25 Urine Glucose (UA) NEGATIVE mg/dL (NEGATIVE) 10/13/17 14:25 Urine Ketones NEGATIVE mg/dL (NEGATIVE) 10/13/17 14:25 Urine Blood TRACE (NEGATIVE) 10/13/17 14:25 Urine Nitrate NEGATIVE (NEGATIVE) 10/13/17 14:25 Urine Bilirubin NEGATIVE (NEGATIVE) 10/13/17 14:25 Urine Urobilinogen 0.2 E.U./dL (0.2 - 1.0) 10/13/17 14:25 Ur Leukocyte Esterase LARGE (NEGATIVE) H 10/13/17 14:25 Urine RBC 2-5 /hpf (0-5) 10/13/17 14:25 Urine WBC 6-10 /hpf (0-5) H 10/13/17 14:25 Ur Epithelial Cells MODERATE /lpf (FEW) 10/13/17 14:25 Urine Bacteria 1+ /hpf (NONE SEEN) H 10/13/17 14:25 Ur Random Sodium 64 mmol/L 10/13/17 14:25 Urine Creatinine 25.5 mg/dl 10/13/17 14:25 Urine Microalbumin 202.1 10/13/17 14:25 Microalb/Creat Ratio 792.5 10/13/17 14:25 - Physical Exam Vitals and I&O: Vital Signs Temp 97.1 F 10/15/17 11:00 Pulse 62 10/15/17 11:00 Resp 16 10/15/17 11:00 BP 104/53 10/15/17 11:00 Pulse Ox 99 10/15/17 11:00 Intake & Output 10/14/17 10/15/17 10/15/17 18:59 06:59 18:59 Intake Total 3801.917 1100 1000 Balance 3801.917 1100 1000 Weight (lbs) 84.504 kg 86.183 kg Intake: Intake, IV Amount 999 1000 Magnesium Sulfate 2 gm In 54 Sodium Chloride 0.9% 50 ml @ 27 mls/hr IV ONCE ONE Rx#:[id number] Sodium Chloride 0.9% 1, 0671.892 3308 1000 000 ml @ 125 mls/hr IV . Q8H [facility] Rx#:[id number] Oral 1800 100 Other: # Voids 4 5 # Bowel Movements 0 1 Weight Source Bedscale Bedscale Active Medications: Current Medications Acetaminophen (Tylenol) 650 mg PO DAILY [facility] Stop: 12/12/17 08:59 Last Admin: 10/15/17 08:33 Dose: Not Given Acetaminophen/Hydrocodone Bitart ([place] 5mg/325mg) 1 tab PO Q6H PRN PRN Reason: Severe Pain Stop: 12/11/17 20:19 Last Admin: 10/15/17 10:44 Dose: 1 tab Amlodipine Besylate (Norvasc) 10 mg PO DAILY [facility] Stop: 12/12/17 08:59 Last Admin: 10/15/17 08:32 Dose: 10 mg Enoxaparin Sodium (Lovenox) 30 mg SUBQ Q24H [facility] Stop: 12/11/17 21:59 Last Admin: 10/14/17 21:58 Dose: 30 mg Ceftriaxone Sodium 1 gm/ (Sodium Chloride) 50 mls @ 100 mls/hr IV Q24HR [facility] Stop: 12/11/17 19:59 Last Admin: 10/14/17 20:48 Dose: 100 mls/hr Sodium Chloride (Nacl 0.9%) 1,000 mls @ 125 mls/hr IV .Q8H [facility] Stop: 12/11/17 20:44 Last Admin: 10/15/17 10:46 Dose: 125 mls/hr Metoprolol Tartrate (Lopressor) 50 mg PO Q12H [facility] Stop: 12/11/17 20:29 Last Admin: 10/15/17 08:32 Dose: 50 mg Morphine Sulfate (Morphine) 1 mg IVP Q4HR PRN PRN Reason: Pain (Moderate) Stop: 12/12/17 00:32 Morphine Sulfate (Morphine) 2 mg IVP Q4HR PRN PRN Reason: Pain (Severe) Stop: 12/12/17 00:32 Last Admin: 10/13/17 05:18 Dose: 2 mg Pantoprazole Sodium (Protonix) 40 mg PO QDAC [facility] Stop: 12/12/17 07:29 Last Admin: 10/15/17 06:49 Dose: 40 mg Sodium Bicarbonate (Sodium Bicarbonate) 650 mg PO TID [facility]; Protocol Stop: 12/14/17 14:14 General: Alert, Oriented x3, No acute distress HEENT: Atraumatic, Mucous membr. moist/pink Neck: Supple, +2 carotid pulse wo bruit Cardiovascular: Regular rate, Normal S1, Normal S2 Lungs: Clear to auscultation Abdomen: Bowel sounds, Soft Extremities: Other (dressing left knee), no Edema Neurological: Sensation intact Skin: no Rash Assessment/Plan - Problem List Patient Problems: All Active Problems HYPONATREMIA WITH WEAKNESS AND N/V (Acute) - Assessment Assessment: CKD Hyponatremia improving Gastritis Ess Htn AG met acid S/P left leg ORIF - Plan Plan: Lab - Result Diagrams 10/14/17 04:50 10/14/17 04:50 Current Medications Acetaminophen (Tylenol) 650 mg PO DAILY [facility] Stop: 12/12/17 08:59 Last Admin: 10/14/17 08:13 Dose: Not Given Acetaminophen/Hydrocodone Bitart ([place] 5mg/325mg) 1 tab PO Q6H PRN PRN Reason: Severe Pain Stop: 12/11/17 20:19 Last Admin: 10/14/17 08:10 Dose: 1 tab Amlodipine Besylate (Norvasc) 10 mg PO DAILY [facility] Stop: 12/12/17 08:59 Last Admin: 10/14/17 11:39 Dose: Not Given Enoxaparin Sodium (Lovenox) 30 mg SUBQ Q24H [facility] Stop: 12/11/17 21:59 Last Admin: 10/13/17 23:02 Dose: 30 mg Ceftriaxone Sodium 1 gm/ (Sodium Chloride) 50 mls @ 100 mls/hr IV Q24HR [facility] Stop: 12/11/17 19:59 Last Admin: 10/13/17 20:56 Dose: 100 mls/hr Sodium Chloride (Nacl 0.9%) 1,000 mls @ 125 mls/hr IV .Q8H [facility] Stop: 12/11/17 20:44 Last Admin: 10/14/17 08:08 Dose: 125 mls/hr Metoprolol Tartrate (Lopressor) 50 mg PO Q12H [facility] Stop: 12/11/17 20:29 Last Admin: 10/14/17 08:13 Dose: Not Given Morphine Sulfate (Morphine) 1 mg IVP Q4HR PRN PRN Reason: Pain (Moderate) Stop: 12/12/17 00:32 Morphine Sulfate (Morphine) 2 mg IVP Q4HR PRN PRN Reason: Pain (Severe) Stop: 12/12/17 00:32 Last Admin: 10/13/17 05:18 Dose: 2 mg Pantoprazole Sodium (Protonix) 40 mg PO QDAC [facility] Stop: 12/12/17 07:29 Last Admin: 10/14/17 06:35 Dose: 40 mg Sodium Bicarbonate (Sodium Bicarbonate) 650 mg PO BID [facility]; Protocol Stop: 12/13/17 16:59 Lab - Result Diagrams 10/15/17 05:35 10/15/17 05:35 Kidney fnc improved but basically the same Na up to 133 continue hydration start NaHC03 analgesics Nutritional Asmnt/Malnutr-PDOC - Dietary Evaluation Malnutrition Findings (Please click <Entered> for more info): Nutritional Asmnt/Malnutrition Start: 10/13/17 15: 07 Text: Status: Complete Freq: Protocol: Document 10/13/17 15:07 LCHENG (Rec: 10/13/17 15:22 LCHENG [email or web address]) Nutritional Asmnt/Malnutrition Patient General Information Nutritional Screening High Risk Diagnosis dehydration, anemia Pertinent Medical Hx/Surgical Hx HTN, PUD/GERD, arthritis, hip fx Subjective Information Pt seen lying in bed at time of visit. Turkmen speaker noted. Per nurse, pt consumed about 30% of breakfast this morning, no problem of chewing . Current Diet Order/ Nutrition Support CCHO, soft mechanical Pertinent Medications protonix, nacl 0.9% Pertinent Labs 10/13 Na 128, BUN 41, Cr 1.8, Glucose 102, alb 3.3 10/12 Na 124, K 5.4, Cl 95, BUN 49, Cr 2.0, glucose 135 Nutritional Hx/Data Height 1.65 m Height (Calculated Centimeters) 165.1 Current Weight (lbs) 84.368 kg Weight (Calculated Kilograms) 84.4 Weight (Calculated Grams) 64186.2 [place] Body Weight 125 Body Mass Index (BMI) 30.9 Weight Status Obese GI Symptoms GI Symptoms None Last BM 10/13 Difficult in: None Skin Integrity/Comment: HX LEFT HIP FX, LEG BRACE IN PLACE Estimated Nutritional Goals BEE in Kcals: Adj wt of IBW Calories/Kcals/Kg 25-30 Kcals Calculated 9038-1840 Protein: Adj wt of IBW Protein g/k monitor renal labs Protein Calculated 64 Fluid: ml 1600-1920ml (1ml/kcal) Nutritional Problem 1. Problem Problem altered nutrition related labs Etiology electrolytes imbalance Signs/Symptoms: Na 128 Malnutrition Alert Is there a minimum of two criteria No selected? Query Text:Check all the applicable criteria. A minimum of two criteria are recommended for diagnosis of either severe or non-severe malnutrition. Malnutrition Related to Morbid Obesity Malnutrition related to morbid obesity No Intervention/Recommendation Comments 1. Continue with [facility] soft mech diet as ordered. Nurses to assist pt with meals and encourage oral intake. 2. Monitor PO intake, wt, labs and skin integrity 3. F/U as moderate risk in 3-5 days, 10/16-10/18, PO check Expected Outcomes/Goals Expected Outcomes/Goals 1. PO intake to meet at least 75% of nutritional needs. 2. Wt stability, skin to remain intact, labs to approach WNL.
--- NOTE | 2017-10-15 16:36 | General Progress Note ---
Subjective - Review of Systems Subjective: Left left pain is improving Objective - Results Result Diagrams: 10/15/17 05:35 10/15/17 05:35 Recent Labs: Laboratory Last Values WBC 7.7 Th/cmm (4.8-10.8) 10/15/17 05:35 RBC 2.70 Mil/cmm (3.80-5.10) L 10/15/17 05:35 Hgb 8.2 gm/dL (12-16) L 10/15/17 05:35 Hct 24.2 % (41.0-60) L 10/15/17 05:35 MCV 89.6 fl (81-100) 10/15/17 05:35 MCH 30.5 pg (27.0-31.0) 10/15/17 05:35 MCHC Differential 34.0 pg (28.0-36.0) 10/15/17 05:35 RDW 14.1 % (11.5-20.0) 10/15/17 05:35 Plt Count 326 Th/cmm (150-400) 10/15/17 05:35 MPV 7.2 fl 10/15/17 05:35 Neutrophils % 64.6 % (40.0-80.0) 10/15/17 05:35 Lymphocytes % 19.7 % (20.0-50.0) L 10/15/17 05:35 Monocytes % 9.6 % (2.0-10.0) 10/15/17 05:35 Eosinophils % 4.4 % (0.0-5.0) 10/15/17 05:35 Basophils % 1.7 % (0.0-2.0) 10/15/17 05:35 Eos Smear Source URINE 10/13/17 14:25 Eos Smear Total Cells NONE SEEN (NONE SEEN) 10/13/17 14:25 PT 9.5 SECONDS (9.5-11.5) 10/12/17 15:37 INR 0.91 (0.5-1.4) 10/12/17 15:37 PTT (Actin FS) 30.5 SECONDS (26.0-38.0) 10/12/17 15:37 Sodium 133 mEq/L (136-145) L 10/15/17 05:35 Potassium 5.0 mEq/L (3.5-5.1) 10/15/17 05:35 Chloride 109 mEq/L (98-107) H 10/15/17 05:35 Carbon Dioxide 16.7 mEq/L (21.0-31.0) L 10/15/17 05:35 Anion Gap 12.3 (7.0-16.0) 10/15/17 05:35 BUN 31 mg/dL (7-25) H 10/15/17 05:35 Creatinine 1.5 mg/dL (0.6-1.2) H 10/15/17 05:35 Est GFR ( Amer) 45.4 ml/min (>90) 10/15/17 05:35 Est GFR (Non-Af Amer) 37.5 ml/min 10/15/17 05:35 BUN/Creatinine Ratio 20.7 10/15/17 05:35 Glucose 99 mg/dL (70-105) 10/15/17 05:35 Plasma/Ser Osmolality 282 mOsmol/kg (280-301) 10/13/17 04:50 Uric Acid 5.0 mg/dL (2.3-6.6) 10/14/17 04:50 Calcium 9.0 mg/dL (8.6-10.3) 10/15/17 05:35 Phosphorus 4.3 mg/dL (2.5-5.0) 10/14/17 04:50 Magnesium 2.0 mg/dL (1.9-2.7) 10/15/17 05:35 Total Bilirubin 0.2 mg/dL (0.3-1.0) L 10/13/17 04:50 AST 10 U/L (13-39) L 10/13/17 04:50 ALT 7 U/L (7-52) 10/13/17 04:50 Alkaline Phosphatase 90 U/L (34-104) 10/13/17 04:50 Troponin I < 0.01 ng/mL (0.01-0.05) L 10/12/17 15:37 Total Protein 6.6 gm/dL (6.0-8.3) 10/13/17 04:50 Albumin 3.3 gm/dL (3.7-5.3) L 10/13/17 04:50 Globulin 3.3 gm/dL 10/13/17 04:50 Albumin/Globulin Ratio 1.0 (1.0-1.8) 10/13/17 04:50 Triglycerides 92 mg/dL (<150) 10/13/17 04:50 Cholesterol 127 mg/dL (<200) 10/13/17 04:50 LDL Cholesterol Direct 77 mg/dL (75-193) 10/13/17 04:50 HDL Cholesterol 34 mg/dL (23-92) 10/13/17 04:50 TSH 1.96 uIU/ml (0.34-5.60) 10/13/17 04:50 Urine Source MIDSTREAM 10/13/17 14:25 Urine Color YELLOW 10/13/17 14:25 Urine Clarity HAZY (CLEAR) 10/13/17 14:25 Urine pH 6.0 (4.6 - 8.0) 10/13/17 14:25 Ur Specific [place] <= 1.005 (1.005-1.030) 10/13/17 14:25 Urine Protein 30 mg/dL (NEGATIVE) H 10/13/17 14:25 Urine Glucose (UA) NEGATIVE mg/dL (NEGATIVE) 10/13/17 14:25 Urine Ketones NEGATIVE mg/dL (NEGATIVE) 10/13/17 14:25 Urine Blood TRACE (NEGATIVE) 10/13/17 14:25 Urine Nitrate NEGATIVE (NEGATIVE) 10/13/17 14:25 Urine Bilirubin NEGATIVE (NEGATIVE) 10/13/17 14:25 Urine Urobilinogen 0.2 E.U./dL (0.2 - 1.0) 10/13/17 14:25 Ur Leukocyte Esterase LARGE (NEGATIVE) H 10/13/17 14:25 Urine RBC 2-5 /hpf (0-5) 10/13/17 14:25 Urine WBC 6-10 /hpf (0-5) H 10/13/17 14:25 Ur Epithelial Cells MODERATE /lpf (FEW) 10/13/17 14:25 Urine Bacteria 1+ /hpf (NONE SEEN) H 10/13/17 14:25 Ur Random Sodium 64 mmol/L 10/13/17 14:25 Urine Creatinine 25.5 mg/dl 10/13/17 14:25 Urine Microalbumin 202.1 10/13/17 14:25 Microalb/Creat Ratio 792.5 10/13/17 14:25 - Physical Exam Vitals and I&O: Vital Signs Temp 97.1 F 10/15/17 11:00 Pulse 62 10/15/17 11:00 Resp 16 10/15/17 11:00 BP 104/53 10/15/17 11:00 Pulse Ox 99 10/15/17 11:00 Intake & Output 10/14/17 10/15/17 10/15/17 18:59 06:59 18:59 Intake Total 3801.917 1100 1000 Balance 3801.917 1100 1000 Weight (lbs) 84.504 kg 86.183 kg Intake: Intake, IV Amount 1000 1000 Magnesium Sulfate 2 gm In 54 Sodium Chloride 0.9% 50 ml @ 27 mls/hr IV ONCE ONE Rx#:[id number] Sodium Chloride 0.9% 1, 0612.404 8576 1000 000 ml @ 125 mls/hr IV . Q8H [facility] Rx#:[id number] Oral 1800 100 Other: # Voids 4 5 # Bowel Movements 0 1 Weight Source Bedscale Bedscale Active Medications: Current Medications Acetaminophen (Tylenol) 650 mg PO DAILY [facility] Stop: 12/12/17 08:59 Last Admin: 10/15/17 08:33 Dose: Not Given Acetaminophen/Hydrocodone Bitart ([place] 5mg/325mg) 1 tab PO Q6H PRN PRN Reason: Severe Pain Stop: 12/11/17 20:19 Last Admin: 10/15/17 10:44 Dose: 1 tab Amlodipine Besylate (Norvasc) 10 mg PO DAILY [facility] Stop: 12/12/17 08:59 Last Admin: 10/15/17 08:32 Dose: 10 mg Enoxaparin Sodium (Lovenox) 30 mg SUBQ Q24H [facility] Stop: 12/11/17 21:59 Last Admin: 10/14/17 21:58 Dose: 30 mg Ceftriaxone Sodium 1 gm/ (Sodium Chloride) 50 mls @ 100 mls/hr IV Q24HR [facility] Stop: 12/11/17 19:59 Last Admin: 10/14/17 20:48 Dose: 100 mls/hr Sodium Chloride (Nacl 0.9%) 1,000 mls @ 125 mls/hr IV .Q8H [facility] Stop: 12/11/17 20:44 Last Admin: 10/15/17 10:46 Dose: 125 mls/hr Metoprolol Tartrate (Lopressor) 50 mg PO Q12H [facility] Stop: 12/11/17 20:29 Last Admin: 10/15/17 08:32 Dose: 50 mg Morphine Sulfate (Morphine) 1 mg IVP Q4HR PRN PRN Reason: Pain (Moderate) Stop: 12/12/17 00:32 Morphine Sulfate (Morphine) 2 mg IVP Q4HR PRN PRN Reason: Pain (Severe) Stop: 12/12/17 00:32 Last Admin: 10/13/17 05:18 Dose: 2 mg Pantoprazole Sodium (Protonix) 40 mg PO QDAC [facility] Stop: 12/12/17 07:29 Last Admin: 10/15/17 06:49 Dose: 40 mg Sodium Bicarbonate (Sodium Bicarbonate) 650 mg PO TID [facility]; Protocol Stop: 12/14/17 14:14 Last Admin: 10/15/17 14:47 Dose: 650 mg General: Alert, Oriented x3, No acute distress HEENT: Atraumatic, Mucous membr. moist/pink Neck: Supple, +2 carotid pulse wo bruit Cardiovascular: Regular rate, Normal S1, Normal S2 Lungs: Clear to auscultation Abdomen: Bowel sounds, Soft Extremities: Other (dressing left knee), no Edema Neurological: Sensation intact Skin: no Rash Assessment/Plan - Problem List Patient Problems: All Active Problems HYPONATREMIA WITH WEAKNESS AND N/V (Acute) - Assessment Assessment: UTI Hyponatremia OA s/p ORIF of left distal femur - Plan Plan: Pain managment abxs CPM will monitor pt. Nutritional Asmnt/Malnutr-PDOC - Dietary Evaluation Malnutrition Findings (Please click <Entered> for more info): Nutritional Asmnt/Malnutrition Start: 10/13/17 15: 07 Text: Status: Complete Freq: Protocol: Document 10/13/17 15:07 LCHENG (Rec: 10/13/17 15:22 LCHENG [email or web address]) Nutritional Asmnt/Malnutrition Patient General Information Nutritional Screening High Risk Diagnosis dehydration, anemia Pertinent Medical Hx/Surgical Hx HTN, PUD/GERD, arthritis, hip fx Subjective Information Pt seen lying in bed at time of visit. Serbian speaker noted. Per nurse, pt consumed about 30% of breakfast this morning, no problem of chewing . Current Diet Order/ Nutrition Support CCHO, soft mechanical Pertinent Medications protonix, nacl 0.9% Pertinent Labs 10/13 Na 128, BUN 41, Cr 1.8, Glucose 102, alb 3.3 10/12 Na 124, K 5.4, Cl 95, BUN 49, Cr 2.0, glucose 135 Nutritional Hx/Data Height 1.65 m Height (Calculated Centimeters) 165.1 Current Weight (lbs) 84.368 kg Weight (Calculated Kilograms) 84.4 Weight (Calculated Grams) 66298.2 [place] Body Weight 125 Body Mass Index (BMI) 30.9 Weight Status Obese GI Symptoms GI Symptoms None Last BM 10/13 Difficult in: None Skin Integrity/Comment: HX LEFT HIP FX, LEG BRACE IN PLACE Estimated Nutritional Goals BEE in Kcals: Adj wt of IBW Calories/Kcals/Kg 25-30 Kcals Calculated 8700-9613 Protein: Adj wt of IBW Protein g/k monitor renal labs Protein Calculated 64 Fluid: ml 1600-1920ml (1ml/kcal) Nutritional Problem 1. Problem Problem altered nutrition related labs Etiology electrolytes imbalance Signs/Symptoms: Na 128 Malnutrition Alert Is there a minimum of two criteria No selected? Query Text:Check all the applicable criteria. A minimum of two criteria are recommended for diagnosis of either severe or non-severe malnutrition. Malnutrition Related to Morbid Obesity Malnutrition related to morbid obesity No Intervention/Recommendation Comments 1. Continue with [facility] soft mech diet as ordered. Nurses to assist pt with meals and encourage oral intake. 2. Monitor PO intake, wt, labs and skin integrity 3. F/U as moderate risk in 3-5 days, 10/16-10/18, PO check Expected Outcomes/Goals Expected Outcomes/Goals 1. PO intake to meet at least 75% of nutritional needs. 2. Wt stability, skin to remain intact, labs to approach WNL.
[2017-10-15] MEDS: Enoxaparin 30 mg/0.3 mL 0.3mL Syr SUBQ SCH (21:50)
[2017-10-15] MEDS: cefTRIAXone 1 GM in Sodium Chloride 0.9% 50 ML IV SCH (21:50)
[2017-10-16 06:33] LABS: % BASOPHILS 0.9 % (0.0-2.0); % EOSINOPHILS 4.9 % (0.0-5.0); % LYMPHOCYTES 21.4 % (20.0-50.0); % MONOCYTES 8.8 % (2.0-10.0); BASOPHILE ABSOLUTE 0.1 Th/cumm (0-0.2); EOSINOPHILE ABSOLUTE 0.3 Th/cmm (0.1-0.4); HEMATOCRIT 24.5 % (41.0-60); HEMOGLOBIN 8.3 gm/dL (12-16); LYMPHOCYTE ABSOLUTE 1.5 Th/cmm (1.5-3.0); MEAN CELL VOLUME 89.8 fl (81-100); MEAN CORPUSCULAR HEMOGLOBIN 30.4 pg (27.0-31.0); MEAN CORPUSCULAR HGB CONC 33.9 pg (28.0-36.0); MEAN PLATELET VOLUME 7.5 fl; MONOCYTE ABSOLUTE 0.6 Th/cmm (0.3-1.0); NEUTROPHILE ABSOLUTE 4.6 Th/cmm (1.8-8.0); PLATELET COUNT 302 Th/cmm (150-400); RED BLOOD COUNT 2.73 Mil/cmm (3.80-5.10); RED CELL DISTRIBUTION WIDTH 14.4 % (11.5-20.0); WHITE BLOOD COUNT 7.1 Th/cmm (4.8-10.8)
[2017-10-16 06:55] LABS: ANION GAP 12.6 (7.0-16.0); CARBON DIOXIDE 17.4 mEq/L (21.0-31.0); CREATININE - SERUM 1.5 mg/dL (0.6-1.2); GFR AFRICAN-AMERICAN 45.4 ml/min (>90); GFR NON AFRICAN-AMERICAN 37.5 ml/min
[2017-10-16] MEDS: Sodium Chloride 0.9% 1,000 ML IV SCH (07:10)
[2017-10-16] MEDS: Hydrocodone/APAP 5mg/325mg Tab PO PRN (07:10)
[2017-10-16] MEDS: Pantoprazole 40 mg EC Tab PO SCH (07:10)
--- NOTE | 2017-10-19 18:04 | Discharge Summary ---
DATE OF DISCHARGE: 10/16/2017 This patient is admitted to [facility] on 10/12/2017 and patient was discharged on 10/16/2017 to [facility]. This 61-year-old female patient, patient was admitted for urinary infection, rule out sepsis, dehydration, anemia, status post left femur fracture, history of hypertension, peptic ulcer disease, GERD, history of arthritis and history of depression. The patient was treated completely with IV antibiotics and pain medications and multiple consultants including Dr. Mendoza, ID consult was done and the patient improved. The patient was in stable condition. On 10/16/2017, was discharged back to [facility] where I will follow the patient. The patient was given p.o. antibiotics. The patient will continue physical therapy. MEDICATIONS: See the reconciliation. CONDITION AT THE TIME OF DISCHARGE: Stable. JOB# [id number]
== END 2017-10-16 13:45 | DRG 871 ==
LOC: ER 15:05 → MSI 17:15
PROVIDERS: ADMIT Internal Medicine; ATTEND Internal Medicine
DX: A41.9 Sepsis, unspecified organism (principal); N17.0 Acute kidney failure with tubular necrosis; N39.0 Urinary tract infection, site not specified; E87.1 Hypo-osmolality and hyponatremia; E86.0 Dehydration; D64.9 Anemia, unspecified; M19.90 Unspecified osteoarthritis, unspecified site; K21.9 Gastro-esophageal reflux disease without esophagitis; F32.9 Major depressive disorder, single episode, unspecified; N18.2 Chronic kidney disease, stage 2 (mild); B96.20 Unspecified Escherichia coli [E. coli] as the cause of diseases classified elsewhere; I12.9 Hypertensive chronic kidney disease with stage 1 through stage 4 chronic kidney disease, or unspecified chronic kidney disease; K29.70 Gastritis, unspecified, without bleeding; E87.5 Hyperkalemia; Z87.11 Personal history of peptic ulcer disease; Z79.899 Other long term (current) drug therapy; Z16.12 Extended spectrum beta lactamase (ESBL) resistance; Z87.311 Personal history of (healed) other pathological fracture; Z68.32 Body mass index [BMI] 32.0-32.9, adult
CPT/HCPCS: 36415-UA; 71045-TC; 76770-TC; 80048-TC; 80053-TC; 80061-TC; 81001-TC; 81015-TC; 82043-90; 82570-TC; 83735-TC; 83930-90; 84100-TC; 84300-TC; 84443-TC; 84484-TC; 84550-TC; 85025-TC; 85610-TC; 85730-TC; 93005; 96374; 97530; J0696; J1650; J2270; J3475; J7030; X3904; Z7610